=== PATIENT | female | born 1990 | race American Indian/Alaskan Native ===

== ENCOUNTER 2019-07-23 13:07 | Emergency (ER) | payer MEDICAID | END 2019-07-23 19:16 | disposition left against medical advice (07) | LOC: ED 13:07 | DX: R51 Headache (principal); Z53.21 Procedure and treatment not carried out due to patient leaving prior to being seen by health care provider ==

== ENCOUNTER 2019-11-29 15:33 | Outpatient (CLI) | payer OTHER, MEDICAID ==
[2019-11-29 19:35] VITALS: BP 105/55
== END 2019-11-29 19:54 | disposition home or self-care (01) ==
LOC: TRG 15:33 → LAB 15:33 → TRG 18:42
PROVIDERS: ATTEND Obstetrics & Gynecology
DX: O36.0930 Maternal care for other rhesus isoimmunization, third trimester, not applicable or unspecified (principal); Z3A.28 28 weeks gestation of pregnancy; Z67.91 Unspecified blood type, Rh negative
CPT/HCPCS: 86850; 86900; 86901

== ENCOUNTER 2019-12-12 13:19 | Outpatient (CLI) | payer OTHER, MEDICAID ==
[~2019-12-12 13:19] MED LIST: INSULIN REGULAR, HUMAN 100 UNITS/1 ML ONE
[2019-12-12 15:50] LABS: Hematocrit 32.5 % (30.3-42.9); Mean Corpuscular HGB Conc 34 % (30-34); Mean Corpuscular Volume 83 fl (79-97); Platelet Count 271 K/mm3 (140-440); Red Blood Count 3.94 M/mm3 (3.65-5.03); Red Cell Distribution Width 14.8 % (13.2-15.2)
[2019-12-12 15:58] LABS: Alanine Aminotransferase 14 units/L (7-56); BUN/Creatinine Ratio 12; Blood Urea Nitrogen 6 mg/dL (7-17); Calcium 8.3 mg/dL (8.4-10.2); Hemolysis Index 3
[2019-12-12] MEDS ORDERED: LACTATED RINGERS 1,000 ML IV SCH (16:00)
[2019-12-12] MEDS ORDERED: DOCUSATE SODIUM 100 MG CAP PO PRN (16:00)
[2019-12-12] MEDS ORDERED: ACETAMINOPHEN 325 MG TAB PO PRN (16:00)
[2019-12-12] MEDS ORDERED: INSULIN REGULAR, HUMAN 100 UNITS/1 ML SUB-Q SCH (16:30)
--- NOTE | 2019-12-12 17:04 | History and Physical Report ---
History of Present Illness Date of examination: 12/12/19 Date of admission: 12/12/2019 Chief complaint: 30 wks poorly controlled diabetes. History of present illness: Admitted through the offices of MFM at [facility] for control of diabetes. reported palpitations after drinking Pepsi. Past History - Obstetrical History Expected Date of Delivery: 02/16/20 Actual Gestation: 30 Week(s) 4 Day(s) : 3 Para: 1 Number of Living Children: 1 Medications and Allergies Allergies Allergy/AdvReac Type Severity Reaction Status Date / Time amoxicillin Allergy Severe Hives Verified 12/12/19 14:15 Active Meds: Active Medications Acetaminophen (Tylenol) 650 mg PO Q4H PRN PRN Reason: Pain MILD(1-3)/Fever >100.5/CH[place]RIA Docusate Sodium (Colace) 100 mg PO Q12H PRN PRN Reason: Constipation Lactated Ringer's (Lactated Ringers) 1,000 mls @ 75 mls/hr IV DIRECT [place]UL[place] Insulin Human Regular (Humulin R) 0 units SUB-Q ACHS [place]UL[place]; Protocol Multivitamins/Iron/Calcium ( Vitamin) 1 each PO QDAY [place] Review of Systems All systems: negative - Vital Signs Vital signs: Vital Signs Pulse BP Pulse Ox 105 H 104/51 98 12/12/19 14:14 12/12/19 14:14 12/12/19 14:14 Temp Pulse Resp BP Pulse Ox 98.6 F 99 H 20 104/51 100 12/12/19 14:17 12/12/19 16:54 12/12/19 14:17 12/12/19 14:17 12/12/19 16:54 - Physical Exam Lungs: Positive: Normal air movement Abdomen: Positive: normal appearance, soft, distention. Negative: tenderness, guarding Extremities: Positive: normal - Obstetrical FHR: auscultation normal Results Result Diagrams: 12/12/19 15:10 12/12/19 15:10 Abnormal lab results 12/12/19 12/12/19 Range/Units 15:10 15:10 Sodium 133 L (137-145) mmol/L Carbon Dioxide 17 L (22-30) mmol/L BUN 6 L (7-17) mg/dL Creatinine 0.5 L (0.7-1.2) mg/dL Glucose 217 H (65-100) mg/dL Hemoglobin A1c 11.7 H (4-6) % Calcium 8.3 L (8.4-10.2) mg/dL Albumin 3.0 L (3.9-5) g/dL All other labs normal. Assessment and Plan - Patient Problems (1) Diabetes mellitus Current Visit: Yes Status: Acute (2) with 30 completed weeks gestation Current Visit: Yes Status: Acute (3) Palpitations Current Visit: Yes Status: Acute Plan to address problem: A per MFM, 1. Admit 2. 24hr urinary protein, CBC, CMP, HbA1c, Fructosamine. 3. Accuchecks q4hrs. Regular insulin sliding scale coverage BS-100/30 =units of insul;in 4. 41 units of reg insulin and 84 units of NPHSQQAM, 31 units ofreg insulin and 31 unitsNPH insulin SQ QPM 5. I&O 6. 220 calorie ADA diet 7. Cardiology consult.
[2019-12-12] MEDS ORDERED: DEXTROSE 50% IN WATER (25GM) 50 ML SYRINGE IV PRN (17:21)
[2019-12-12 17:32] LABS: Basophils % (Auto) 0.3 % (0.0-1.8); Eosinophils # (Auto) 0.1 K/mm3 (0.0-0.4); Eosinophils % (Auto) 1.4 % (0.0-4.3); Hematocrit 34.5 % (30.3-42.9); Hemoglobin 11.2 gm/dl (10.1-14.3); Lymphocytes # (Auto) 1.6 K/mm3 (1.2-5.4); Lymphocytes % (Auto) 25.5 % (13.4-35.0); Mean Corpuscular HGB Conc 33 % (30-34); Mean Corpuscular Volume 83 fl (79-97); Monocytes # (Auto) 0.7 K/mm3 (0.0-0.8); Monocytes % (Auto) 11.8 % (0.0-7.3); Platelet Count 266 K/mm3 (140-440); Red Blood Count 4.18 M/mm3 (3.65-5.03); Red Cell Distribution Width 14.7 % (13.2-15.2)
[2019-12-12 18:01] LABS: Alanine Aminotransferase 14 units/L (7-56); Uric Acid 3.7 mg/dL (3.5-7.6)
[2019-12-12] MEDS: INSULIN REGULAR, HUMAN 100 UNITS/1 ML SUB-Q SCH ×2 (18:11→23:01)
[2019-12-12 18:57] LABS: Bilirubin,Urine NEG (Negative); Blood,Urine NEG (Negative); Color,Urine Yellow (Yellow); Mucus,Urine FEW /HPF; Protein,Urine <15 mg/dL mg/dL (Negative); Urobilinogen,Urine < 2.0 mg/dL (<2.0)
[2019-12-13] MEDS: INSULIN NPH, HUMAN 100 UNIT/1 ML SUB-Q SCH ×3 (08:57→17:45)
--- NOTE | 2019-12-13 09:43 | Consultation ---
<RICHELLE MERCHANT - Last Filed: 12/13/19 10:30> History of Present Illness Consult date: 12/13/19 Requesting physician: DELFINO SUAREZ Consult reason: other (palpitations) History of present illness: The pt is a 29 YO female who is 30 weeks () with a past medical history of uncontrolled DM. She is previously unknown to our practice. She presented from her OBGYN's office yesterday for management of uncontrolled diabetes. She states that she experienced palpitations 2 days ago and thus cardiology has been consulted. Pt reports that 2 days ago, she was experiencing heart burn so she drank Pepsi and then developed palpitations. She presented to [facility] for evaluation and reports that she had ECG and CT scan performed. She was told these tests were normal and was discharged home. Her palpitations only lasted for a couple of hours and have not returned. She denies any current chest pain, SOB, n/v, diaphoresis, dizziness or syncope. She denies any known prior cardiac issues or cardiac w/u. Past History Past Medical History: diabetes, other (30 weeks ) Medications and Allergies Allergies Allergy/AdvReac Type Severity Reaction Status Date / Time amoxicillin Allergy Severe Hives Verified 12/12/19 14:15 Home Medications Medication Instructions Recorded Confirmed Last Taken Type No Known Home Medications [No 12/12/19 12/12/19 Unknown History Reported Home Medications] Active Meds: Active Medications Acetaminophen (Tylenol) 650 mg PO Q4H PRN PRN Reason: Pain MILD(1-3)/Fever >100.5/[place] Dextrose (D50w (25gm) Syringe) 50 ml IV Q30MIN PRN; Protocol PRN Reason: Hypoglycemia Docusate Sodium (Colace) 100 mg PO Q12H PRN PRN Reason: Constipation Lactated Ringer's (Lactated Ringers) 1,000 mls @ 75 mls/hr IV DIRECT PAULINA Insulin Human NPH (Humulin N) 84 unit SUB-Q QAMDIAB [facility] Last Admin: 12/13/19 08:57 Dose: 84 unit Documented by: Insulin Human NPH (Humulin N) 31 unit SUB-Q QPMDIAB [facility] Last Admin: 12/13/19 09:00 Dose: 31 unit Documented by: Insulin Human Regular (Humulin R) 0 units SUB-Q Q4HR [facility]; Protocol Last Admin: 12/12/19 23:01 Dose: 4 units Documented by: Insulin Human Regular (Humulin R) 41 units SUB-Q QAMDIAB [facility] Insulin Human Regular (Humulin R) 31 units SUB-Q QPMDIAB [facility] Multivitamins/Iron/Calcium ( Vitamin) 1 each PO QDAY [facility] Review of Systems Constitutional: no weight loss, no fever, no chills, no sweats Ears, nose, mouth and throat: no ear pain, no nose pain, no sinus pressure, no sinus pain Cardiovascular: palpitations, no chest pain, no orthopnea, no rapid/irregular heart beat, no edema, no syncope, no lightheadedness, no shortness of breath, no dyspnea on exertion, no high blood pressure Respiratory: no cough, no shortness of breath, no dyspnea on exertion, no con gestion, no wheezing, no pain on inspiration Gastrointestinal: no abdominal pain, no nausea, no vomiting, no diarrhea, no constipation, no change in bowel habits Genitourinary Female: no pelvic pain, no flank pain Musculoskeletal: no neck stiffness, no neck pain, no shooting arm pain, no arm numbness/tingling, no low back pain, no shooting leg pain Integumentary: no rash, no pruritis, no redness, no sores, no wounds Neurological: no head injury, no paralysis, no weakness, no parathesias, no numbness, no tingling, no seizures, no syncope Psychiatric: no anxiety Endocrine: high blood sugars, no cold intolerance, no heat intolerance Hematologic/Lymphatic: no easy bruising Allergic/Immunologic: no urticaria Physical Examination Vital Signs Pulse BP Pulse Ox 105 H 104/51 98 12/12/19 14:14 12/12/19 14:14 12/12/19 14:14 General appearance: no acute distress HEENT: Positive: PERRL, Normocephaly, Mucus Membranes Moist Neck: Positive: neck supple, trachea midline Cardiac: Positive: Regular Rhythm, S1/S2 Lungs: Positive: Decreased Breath Sounds Neuro: Positive: Grossly Intact Abdomen: Positive: Other () Skin: Negative: Rash Musculoskeletal: No Pain Results 12/12/19 17:02 12/12/19 17:02 Cardiac Enzymes 12/12/19 12/12/19 Range/Units 15:10 17:02 AST 18 19 (5-40) units/L Lactate Dehydrogenase 146 (91-180) units/L CBC 12/12/19 12/12/19 Range/Units 15:10 17:02 WBC 6.2 6.2 (4.5-11.0) K/mm3 RBC 3.94 4.18 (3.65-5.03) M/mm3 Hgb 11.0 11.2 (10.1-14.3) gm/dl Hct 32.5 34.5 (30.3-42.9) % Plt Count 271 266 (140-440) K/mm3 Lymph # 1.6 (1.2-5.4) K/mm3 [place] # 0.7 (0.0-0.8) K/mm3 Eos # 0.1 (0.0-0.4) K/mm3 Baso # 0.0 (0.0-0.1) K/mm3 Comprehensive Metabolic Panel 12/12/19 12/12/19 Range/Units 15:10 17:02 Sodium 133 L (137-145) mmol/L Potassium 4.3 (3.6-5.0) mmol/L Chloride 98.9 (98-107) mmol/L Carbon Dioxide 17 L (22-30) mmol/L BUN 6 L (7-17) mg/dL Creatinine 0.5 L 0.4 L (0.7-1.2) mg/dL Glucose 217 H (65-100) mg/dL Calcium 8.3 L (8.4-10.2) mg/dL AST 18 19 (5-40) units/L ALT 14 14 (7-56) units/L Alkaline Phosphatase 44 (35-129) units/L Total Protein 6.6 (6.3-8.2) g/dL Albumin 3.0 L (3.9-5) g/dL - Imaging and Cardiology Echo: pending EKG: report reviewed, image reviewed EKG interpretations - EKG Sinus rhythms and dysrhythmias: sinus tachycardia Assessment and Plan ECG shows ST HR 101, no acute findings. Palpitations currently resolved - likely secondary to caffeine intake. Obtain echo and thyroid profile. Will follow. The patient has been seen in conjunction with Dr. Simon who agrees with the assessment and plan of care. - Patient Problems (1) Palpitations Current Visit: Yes Status: Acute (2) Sinus tachycardia Current Visit: Yes Status: Acute (3) Uncontrolled diabetes mellitus with hyperglycemia Current Visit: Yes Status: Acute (4) with 30 completed weeks gestation Current Visit: Yes Status: Acute <LILLIAN SIMON R - Last Filed: 12/13/19 12:32> Medications and Allergies Active Meds: Active Medications Acetaminophen (Tylenol) 650 mg PO Q4H PRN PRN Reason: Pain MILD(1-3)/Fever >100.5/[place] Dextrose (D50w (25gm) Syringe) 50 ml IV Q30MIN PRN; Protocol PRN Reason: Hypoglycemia Docusate Sodium (Colace) 100 mg PO Q12H PRN PRN Reason: Constipation Lactated Ringer's (Lactated Ringers) 1,000 mls @ 75 mls/hr IV DIRECT PAULINA Insulin Human NPH (Humulin N) 84 unit SUB-Q QAMDIAB [facility] Last Admin: 12/13/19 08:57 Dose: 84 unit Documented by: Insulin Human NPH (Humulin N) 31 unit SUB-Q QPMDIAB [facility] Last Admin: 12/13/19 09:00 Dose: 31 unit Documented by: Insulin Human Regular (Humulin R) 0 units SUB-Q Q4HR [facility]; Protocol Last Admin: 12/12/19 23:01 Dose: 4 units Documented by: Insulin Human Regular (Humulin R) 41 units SUB-Q QAMDIAB [facility] Insulin Human Regular (Humulin R) 31 units SUB-Q QPMDIAB [facility] Multivitamins/Iron/Calcium ( Vitamin) 1 each PO QDAY [facility] Physical Examination Vital Signs Pulse BP Pulse Ox 105 H 104/51 98 12/12/19 14:14 12/12/19 14:14 12/12/19 14:14 Results 12/12/19 17:02 12/12/19 17:02 Cardiac Enzymes 12/12/19 12/12/19 Range/Units 15:10 17:02 AST 18 19 (5-40) units/L Lactate Dehydrogenase 146 (91-180) units/L CBC 12/12/19 12/12/19 Range/Units 15:10 17:02 WBC 6.2 6.2 (4.5-11.0) K/mm3 RBC 3.94 4.18 (3.65-5.03) M/mm3 Hgb 11.0 11.2 (10.1-14.3) gm/dl Hct 32.5 34.5 (30.3-42.9) % Plt Count 271 266 (140-440) K/mm3 Lymph # 1.6 (1.2-5.4) K/mm3 [place] # 0.7 (0.0-0.8) K/mm3 Eos # 0.1 (0.0-0.4) K/mm3 Baso # 0.0 (0.0-0.1) K/mm3 Comprehensive Metabolic Panel 12/12/19 12/12/19 Range/Units 15:10 17:02 Sodium 133 L (137-145) mmol/L Potassium 4.3 (3.6-5.0) mmol/L Chloride 98.9 (98-107) mmol/L Carbon Dioxide 17 L (22-30) mmol/L BUN 6 L (7-17) mg/dL Creatinine 0.5 L 0.4 L (0.7-1.2) mg/dL Glucose 217 H (65-100) mg/dL Calcium 8.3 L (8.4-10.2) mg/dL AST 18 19 (5-40) units/L ALT 14 14 (7-56) units/L Alkaline Phosphatase 44 (35-129) units/L Total Protein 6.6 (6.3-8.2) g/dL Albumin 3.0 L (3.9-5) g/dL Assessment and Plan normal lv function, no signficant regurtiations, if thyroid panel is not hyperthyroidism, treat conservately, discuss with patient about caffeine stop and stres reduction. is stable from [facility] point of view and needs dm control and may discharge after sugar control
[2019-12-13] MEDS ORDERED: PRENATAL VIT27-FE FUMARATE-FOLIC ACID VIT TAB PO SCH (10:00)
[2019-12-13] MEDS ORDERED: INSULIN NPH, HUMAN 100 UNIT/1 ML SUB-Q ONE (10:00)
[2019-12-13] MEDS ORDERED: INSULIN REGULAR, HUMAN 100 UNITS/1 ML ONE (10:00)
--- NOTE | 2019-12-13 15:21 | Progress Note ---
Assessment and Plan - Patient Problems (1) Diabetes mellitus Current Visit: Yes Status: Acute (2) with 30 completed weeks gestation Current Visit: Yes Status: Acute (3) Palpitations Current Visit: Yes Status: Acute Plan to address problem: MIKE Masterson instructed to communicate blood sugars to MF. Subjective - Subjective Date of service: 12/13/19 Principal diagnosis: UNCONTROLLED DIABETES AT 30WKS GESTATION Interval history: Admitted through the offices of MF at [facility] for control of diabetes. reported palpitations after drinking Pepsi. Patient reports: new complaints, movement normal, no loss of fluid, no vaginal bleeding, no contractions Objective - Vital Signs Vital Signs: Vital Signs - 12hr 12/13/19 12/13/19 12/13/19 03:19 03:24 03:29 Temperature Pulse Rate 100 H 93 H 101 H Blood Pressure Blood Pressure [Right] O2 Sat by Pulse 98 98 97 Oximetry 12/13/19 12/13/19 12/13/19 03:34 03:39 03:44 Temperature Pulse Rate 96 H 102 H 98 H Blood Pressure Blood Pressure [Right] O2 Sat by Pulse 97 97 97 Oximetry 12/13/19 12/13/19 12/13/19 03:49 03:54 03:59 Temperature Pulse Rate 101 H 102 H 98 H Blood Pressure Blood Pressure [Right] O2 Sat by Pulse 97 98 97 Oximetry 12/13/19 12/13/19 12/13/19 04:04 04:09 04:14 Temperature Pulse Rate 101 H 107 H 96 H Blood Pressure Blood Pressure [Right] O2 Sat by Pulse 97 97 97 Oximetry 12/13/19 12/13/19 12/13/19 04:19 04:24 04:29 Temperature Pulse Rate 97 H 107 H 102 H Blood Pressure Blood Pressure [Right] O2 Sat by Pulse 98 96 97 Oximetry 12/13/19 12/13/19 12/13/19 04:34 04:37 04:39 Temperature Pulse Rate 105 H 100 H 104 H Blood Pressure Blood Pressure [Right] O2 Sat by Pulse 96 94 97 Oximetry 12/13/19 12/13/19 12/13/19 04:42 04:44 04:49 Temperature Pulse Rate 97 H 100 H 99 H Blood Pressure Blood Pressure [Right] O2 Sat by Pulse 94 96 96 Oximetry 12/13/19 12/13/19 12/13/19 04:54 04:55 04:59 Temperature Pulse Rate 98 H 95 H 98 H Blood Pressure Blood Pressure [Right] O2 Sat by Pulse 96 94 95 Oximetry 12/13/19 12/13/19 12/13/19 05:04 05:09 05:14 Temperature Pulse Rate 101 H 102 H 99 H Blood Pressure Blood Pressure [Right] O2 Sat by Pulse 96 96 96 Oximetry 12/13/19 12/13/19 12/13/19 05:19 05:24 05:29 Temperature Pulse Rate 98 H 101 H 98 H Blood Pressure Blood Pressure [Right] O2 Sat by Pulse 97 96 96 Oximetry 12/13/19 12/13/19 12/13/19 05:34 05:39 05:44 Temperature Pulse Rate 103 H 95 H 100 H Blood Pressure Blood Pressure [Right] O2 Sat by Pulse 96 97 96 Oximetry 12/13/19 12/13/19 12/13/19 05:49 05:54 05:59 Temperature Pulse Rate 99 H 99 H 97 H Blood Pressure Blood Pressure [Right] O2 Sat by Pulse 97 98 97 Oximetry 12/13/19 12/13/19 12/13/19 06:04 06:09 06:14 Temperature Pulse Rate 103 H 98 H 93 H Blood Pressure Blood Pressure [Right] O2 Sat by Pulse 99 98 99 Oximetry 12/13/19 12/13/19 12/13/19 06:19 06:24 06:29 Temperature Pulse Rate 104 H 104 H 103 H Blood Pressure Blood Pressure [Right] O2 Sat by Pulse 98 97 98 Oximetry 12/13/19 12/13/19 12/13/19 06:34 06:39 06:44 Temperature Pulse Rate 103 H 112 H 102 H Blood Pressure Blood Pressure [Right] O2 Sat by Pulse 98 98 98 Oximetry 12/13/19 12/13/19 12/13/19 06:49 06:54 06:59 Temperature Pulse Rate 95 H 102 H 96 H Blood Pressure Blood Pressure [Right] O2 Sat by Pulse 97 96 95 Oximetry 12/13/19 12/13/19 12/13/19 07:04 07:09 07:14 Temperature Pulse Rate 91 H 101 H 97 H Blood Pressure Blood Pressure [Right] O2 Sat by Pulse 96 96 95 Oximetry 12/13/19 12/13/19 12/13/19 07:19 07:24 07:29 Temperature Pulse Rate 99 H 107 H 102 H Blood Pressure Blood Pressure [Right] O2 Sat by Pulse 98 98 99 Oximetry 12/13/19 12/13/19 12/13/19 07:34 07:39 07:44 Temperature Pulse Rate 110 H 99 H 98 H Blood Pressure Blood Pressure [Right] O2 Sat by Pulse 99 98 99 Oximetry 12/13/19 12/13/19 12/13/19 07:49 07:54 07:59 Temperature Pulse Rate 96 H 95 H 97 H Blood Pressure Blood Pressure [Right] O2 Sat by Pulse 99 99 98 Oximetry 12/13/19 12/13/19 12/13/19 08:04 08:09 09:05 Temperature Pulse Rate 96 H 90 106 H Blood Pressure 127/68 Blood Pressure [Right] O2 Sat by Pulse 98 98 Oximetry 12/13/19 12/13/19 12/13/19 09:13 11:21 11:26 Temperature 99 F Pulse Rate 106 H 103 H 98 H Blood Pressure 129/66 Blood Pressure 127/68 [Right] O2 Sat by Pulse 95 97 Oximetry 12/13/19 12/13/19 12/13/19 11:31 13:37 13:41 Temperature 98.2 F 98.8 F Pulse Rate 98 H 103 H Blood Pressure 120/59 Blood Pressure 129/66 [Right] O2 Sat by Pulse Oximetry 12/13/19 12/13/19 12/13/19 13:42 13:47 13:52 Temperature Pulse Rate 105 H 108 H 102 H Blood Pressure Blood Pressure [Right] O2 Sat by Pulse 99 99 99 Oximetry 12/13/19 12/13/19 12/13/19 13:57 14:02 14:07 Temperature Pulse Rate 97 H 104 H 105 H Blood Pressure Blood Pressure [Right] O2 Sat by Pulse 98 99 99 Oximetry 12/13/19 12/13/19 12/13/19 14:12 14:17 14:22 Temperature Pulse Rate 104 H 102 H 109 H Blood Pressure Blood Pressure [Right] O2 Sat by Pulse 98 99 99 Oximetry 12/13/19 14:27 Temperature Pulse Rate 103 H Blood Pressure Blood Pressure [Right] O2 Sat by Pulse 99 Oximetry - Exam Lungs: Normal air movement FHR: auscultation normal - Labs Labs: Abnormal Labs 12/12/19 12/12/19 12/12/19 15:10 15:10 17:02 MCH 27 L [place] % (Auto) 11.8 H Sodium 133 L Carbon Dioxide 17 L BUN 6 L Creatinine 0.5 L Glucose 217 H POC Glucose Hemoglobin A1c 11.7 H Calcium 8.3 L Albumin 3.0 L 12/12/19 12/12/19 12/12/19 17:02 17:35 22:43 MCH [place] % (Auto) Sodium Carbon Dioxide BUN Creatinine 0.4 L Glucose POC Glucose 190 H 223 H Hemoglobin A1c Calcium Albumin 12/13/19 08:41 MCH [place] % (Auto) Sodium Carbon Dioxide BUN Creatinine Glucose POC Glucose 213 H Hemoglobin A1c Calcium Albumin Laboratory Results - last 24 hr 12/12/19 12/12/19 12/12/19 15:10 15:10 15:10 WBC 6.2 RBC 3.94 Hgb 11.0 Hct 32.5 MCV 83 MCH 28 MCHC 34 RDW 14.8 Plt Count 271 Lymph % (Auto) [place] % (Auto) Eos % (Auto) Baso % (Auto) Lymph # [place] # Eos # Baso # Seg Neutrophils % Seg Neutrophils # Sodium 133 L Potassium 4.3 Chloride 98.9 Carbon Dioxide 17 L Anion Gap 21 BUN 6 L Creatinine 0.5 L Estimated GFR > 60 BUN/Creatinine Ratio 12 Glucose 217 H POC Glucose Hemoglobin A1c 11.7 H Uric Acid Calcium 8.3 L Total Bilirubin 0.20 AST 18 ALT 14 Alkaline Phosphatase 44 Lactate Dehydrogenase Total Protein 6.6 Albumin 3.0 L Albumin/Globulin Ratio 0.8 TSH Free T4 Urine Color Urine Turbidity Urine pH Ur Specific [place] Urine Protein Urine Glucose (UA) Urine Ketones Urine Blood Urine Nitrite Urine Bilirubin Urine Urobilinogen Ur Leukocyte Esterase Urine WBC (Auto) Urine RBC (Auto) U Epithel Cells (Auto) Urine Mucus Urine Yeast (Budding) 12/12/19 12/12/19 12/12/19 17:02 17:02 17:35 WBC 6.2 RBC 4.18 Hgb 11.2 Hct 34.5 MCV 83 MCH 27 L MCHC 33 RDW 14.7 Plt Count 266 Lymph % (Auto) 25.5 [place] % (Auto) 11.8 H Eos % (Auto) 1.4 Baso % (Auto) 0.3 Lymph # 1.6 [place] # 0.7 Eos # 0.1 Baso # 0.0 Seg Neutrophils % 61.0 Seg Neutrophils # 3.8 Sodium Potassium Chloride Carbon Dioxide Anion Gap BUN Creatinine 0.4 L Estimated GFR > 60 BUN/Creatinine Ratio Glucose POC Glucose 190 H Hemoglobin A1c Uric Acid 3.7 Calcium Total Bilirubin AST 19 ALT 14 Alkaline Phosphatase Lactate Dehydrogenase 146 Total Protein Albumin Albumin/Globulin Ratio TSH Free T4 Urine Color Urine Turbidity Urine pH Ur Specific [place] Urine Protein Urine Glucose (UA) Urine Ketones Urine Blood Urine Nitrite Urine Bilirubin Urine Urobilinogen Ur Leukocyte Esterase Urine WBC (Auto) Urine RBC (Auto) U Epithel Cells (Auto) Urine Mucus Urine Yeast (Budding) 12/12/19 12/12/19 12/13/19 22:43 Unknown 08:41 WBC RBC Hgb Hct MCV MCH MCHC RDW Plt Count Lymph % (Auto) [place] % (Auto) Eos % (Auto) Baso % (Auto) Lymph # [place] # Eos # Baso # Seg Neutrophils % Seg Neutrophils # Sodium Potassium Chloride Carbon Dioxide Anion Gap BUN Creatinine Estimated GFR BUN/Creatinine Ratio Glucose POC Glucose 223 H 213 H Hemoglobin A1c Uric Acid Calcium Total Bilirubin AST ALT Alkaline Phosphatase Lactate Dehydrogenase Total Protein Albumin Albumin/Globulin Ratio TSH Free T4 Urine Color Yellow Urine Turbidity Clear Urine pH 5.0 Ur Specific [place] 1.028 Urine Protein <15 mg/dl Urine Glucose (UA) >=500 Urine Ketones 80 Urine Blood Neg Urine Nitrite Neg Urine Bilirubin Neg Urine Urobilinogen < 2.0 Ur Leukocyte Esterase Neg Urine WBC (Auto) 1.0 Urine RBC (Auto) 12.0 U Epithel Cells (Auto) 1.0 Urine Mucus Few Urine Yeast (Budding) 1+ 12/13/19 12/13/19 11:07 11:07 WBC RBC Hgb Hct MCV MCH MCHC RDW Plt Count Lymph % (Auto) [place] % (Auto) Eos % (Auto) Baso % (Auto) Lymph # [place] # Eos # Baso # Seg Neutrophils % Seg Neutrophils # Sodium Potassium Chloride Carbon Dioxide Anion Gap BUN Creatinine Estimated GFR BUN/Creatinine Ratio Glucose POC Glucose Hemoglobin A1c Uric Acid Calcium Total Bilirubin AST ALT Alkaline Phosphatase Lactate Dehydrogenase Total Protein Albumin Albumin/Globulin Ratio TSH 1.080 Free T4 1.18 Urine Color Urine Turbidity Urine pH Ur Specific [place] Urine Protein Urine Glucose (UA) Urine Ketones Urine Blood Urine Nitrite Urine Bilirubin Urine Urobilinogen Ur Leukocyte Esterase Urine WBC (Auto) Urine RBC (Auto) U Epithel Cells (Auto) Urine Mucus Urine Yeast (Budding)
--- NOTE | 2019-12-13 16:54 | Consultation ---
History of Present Illness Consult date: 12/13/19 Reason for consult: other (Poorly controlled likely T2DM diabetes in ) History of present illness: FOLLOW UP MFM CONSULTATION Ms. Das is a 29y/o currently at 30+5wks GA who was admitted by her primary OBGYN upon M recommendation for inpatient management of diabetes in the setting of outpatient poorly controlled blood sugars. Interval events: In speaking with the patient today, the patient states that she was having major issues in obtaining supplies for her insulin as well as glucometer from her [facility] pharmacy and that was why she was unable to take her insulin as previously instructed. On review of the chart and in speaking with the patient's RN, there have been issues with the glucometer used today. The patient reports that she received her insulin as scheduled in the AM. Fasting blood sugar was 213. She received appropriate coverage for this. The patient did not have a blood sugar taken for lunch. The next fingerstick recorded was 246, for which she did not receive sliding scale coverage. Currently, the patient is undergoing a 24hr urine collction. She denies CTX/VB/LOF. +FM. Past History - Obstetrical History : 3 Medications and Allergies Allergies Allergy/AdvReac Type Severity Reaction Status Date / Time amoxicillin Allergy Severe Hives Verified 12/12/19 14:15 Home Medications Medication Instructions Recorded Confirmed Last Taken Type No Known Home Medications [No 12/12/19 12/12/19 Unknown History Reported Home Medications] Active Meds: Active Medications Acetaminophen (Tylenol) 650 mg PO Q4H PRN PRN Reason: Pain MILD(1-3)/Fever >100.5/CHAVARRIA Dextrose (D50w (25gm) Syringe) 50 ml IV Q30MIN PRN; Protocol PRN Reason: Hypoglycemia Docusate Sodium (Colace) 100 mg PO Q12H PRN PRN Reason: Constipation Lactated Ringer's (Lactated Ringers) 1,000 mls @ 75 mls/hr IV DIRECT [facility] Sodium Chloride (Nacl 0.9% 1000 Ml) 1,000 mls @ 125 mls/hr IV DIRECT [facility] Insulin Human NPH (Humulin N) 84 unit SUB-Q QAMDIAB [facility] Last Admin: 12/13/19 08:57 Dose: 84 unit Documented by: Insulin Human NPH (Humulin N) 31 unit SUB-Q QPMDIAB [facility] Last Admin: 12/13/19 09:00 Dose: 31 unit Documented by: Insulin Human Regular (Humulin R) 0 units SUB-Q Q4HR [place]; Protocol Last Admin: 12/12/19 23:01 Dose: 4 units Documented by: Insulin Human Regular (Humulin R) 41 units SUB-Q QAMDIAB [place] Insulin Human Regular (Humulin R) 31 units SUB-Q QPMDIAB [facility] Multivitamins/Iron/Calcium ( Vitamin) 1 each PO QDAY [facility] Review of Systems All systems: negative (Denies) - Vital Signs Vital signs: Vital Signs Pulse BP Pulse Ox 105 H 104/51 98 12/12/19 14:14 12/12/19 14:14 12/12/19 14:14 Temp Pulse Resp BP Pulse Ox 98.8 F 109 H 20 120/59 0 L 12/13/19 13:37 12/13/19 15:22 12/12/19 14:17 12/13/19 13:41 12/13/19 15:22 - Physical Exam Abdomen: Positive: normal appearance, soft, other (Obese, gravid. No ruq/epigastric tenderness. No fundal tenderness.) Results Result Diagrams: 12/12/19 17:02 12/12/19 17:02 Abnormal lab results 12/12/19 12/12/19 12/12/19 Range/Units 17:02 17:02 17:35 MCH 27 L (28-32) pg [place] % (Auto) 11.8 H (0.0-7.3) % Creatinine 0.4 L (0.7-1.2) mg/dL POC Glucose 190 H (70-105) 12/12/19 12/13/19 Range/Units 22:43 08:41 MCH (28-32) pg [place] % (Auto) (0.0-7.3) % Creatinine (0.7-1.2) mg/dL POC Glucose 223 H 213 H (70-105) All other labs normal. Assessment and Plan IMPRESSIONS: IUP at 30+5wks gestation Poorly controlled type 2 diabetes mellitus in Rh negative, s/p RHD immune globulin Mild polyhydramnios as noted on M ultrasound yesterday Morbid obesity s/p cardiology consult for palpitations RECOMMENDATIONS: The significance and management of pregestational diabetes in were reviewed. We discussed maternal risks including including preeclampsia, delivery, diabetic ketoacidosis, and progression of nephropathy or retinopathy. We also reviewed risks, including abnormalities of growth (intrauterine growth restriction or macrosomia), defects, hypoglycemia and hyperbilirubinemia, as well as the risk for stillbirth with suboptimal control. In addition, children of women with pregestational diabetes may have higher risks for diabetes and obesity later in life. Going forward, I do recommend the followin. Please increase the patient's current regimen to the following: NPH 88 units in the AM, 38 units in the PM Regular insulin 50 units with breakfast, 38 units with dinner --> Ensure that the insulin is administered at the appropriate times. Regular insulin should be provided 30min to 1 hour prior to the meal given the pharmacokineteics of the drug 2. Please use the following regular insulin sliding scale to cover the patient, if neede, for blood sugars over 140mg/dL: 2 units: 140-160mg/dL 4 units: 160-180mg/dL 6 units: 180-200mg/dL 8 units: 200-220mg/dL 10 units: > 220mg/dL 3. Please obtain a nutritional consultation, if possible, as an inpatient. The patient desires to speak with nutrition. 4. The patient has not had monitoring today. Please obtain an NST or BPP. 5. If the patient's blood sugars are generally less than 200mg/dL and there is no concern for ketosis, the patient may then be considered for discharge home by her primary OBGYN with follow up with Maternal- Medicine as an outpatient. Outpatient monitoring would include weekly visits with M for blood sugar review as well as testing. 6. Please complete the 24hr urine collection 7. I discussed with the patient today that if diabetes is not well controlled by 37 weeks, delivery at 37 weeks is recommended. delivery should be reserved for the routine obstetrical indications.
[2019-12-13 17:13] LABS: Creatinine 24 Hour,Urine 1.6 (0.8-2.8); Creatinine,Urine 111.1 mg/dL (0.1-20.0)
[2019-12-13] MEDS: INSULIN REGULAR, HUMAN 100 UNITS/1 ML SUB-Q SCH ×2 (18:26→21:38)
--- NOTE | 2019-12-13 18:36 | Ultrasound Report ---
ULTRASOUND BIOPHYSICAL PROFILE INDICATION / CLINICAL INFORMATION: IDM. COMPARISON: None available. FINDINGS: BREATHING MOVEMENT = 2 GROSS BODY MOVEMENT = 2 TONE = 2 QUALITATIVE AMNIOTIC FLUID VOLUME = 2 TOTAL BIOPHYSICAL SCORE = 04/25 AMNIOTIC FLUID INDEX (cm) = 21.3 PRESENTATION: Transverse. HEART RATE (beats per minute): 129 IMPRESSION: 1. biophysical profile = 04/25 Signer Name: Thor Vasquez MD Signed: 12/13/2019 6:32 PM Workstation Name: [id number]
--- NOTE | 2019-12-13 18:39 | Ultrasound Report ---
ULTRASOUND OBSTETRIC Indication: DIABETES UNCONTROLLED Findings: There is a single intrauterine . BPD = 8.0 cm = 32 weeks, 0 day(s). Head circumference = 30 cm = 33 weeks, 2 day(s). Abdominal circumference = 30.7 cm = 34 weeks, 5 day(s). Femur length = 6.4 cm = 32 weeks, 6 day(s). Overall estimated sonographic age = 33 weeks, 2 day(s). heart rate is 129 beats per minute. Estimated weight is 2268 grams position is transverse. Cervix appears closed. movement is present. Amniotic fluid volume appears normal. Maternal adnexa were not visualized. Impression: 1. Single living intrauterine with estimated sonographic age of 33 weeks, 2 day(s). 2. No sonographic abnormality identified. Signer Name: Thor Vasquez MD Signed: 12/13/2019 6:34 PM Workstation Name: [id number]
[2019-12-14] MEDS: INSULIN REGULAR, HUMAN 100 UNITS/1 ML SUB-Q SCH ×4 (00:30→19:11)
[2019-12-14] MEDS: SODIUM CHLORIDE 0.9% 1000 ML 1,000 ML IV SCH ×2 (04:34→19:47)
[2019-12-14] MEDS: INSULIN NPH, HUMAN 100 UNIT/1 ML SUB-Q SCH ×2 (08:21→17:34)
[2019-12-14] MEDS ORDERED: INSULIN REGULAR, HUMAN 100 UNITS/1 ML ONE ×2 (10:00→19:08)
--- NOTE | 2019-12-14 15:47 | Progress Note ---
Assessment and Plan - Patient Problems (1) Diabetes mellitus Current Visit: Yes Status: Acute (2) with 30 completed weeks gestation Current Visit: Yes Status: Acute (3) Palpitations Current Visit: Yes Status: Acute Plan to address problem: The following recommendations from [facility] dated 12/13/2019 were noted: Going forward, I do recommend the followin. Please increase the patient's current regimen to the following: NPH 88 units in the AM, 38 units in the PM Regular insulin 50 units with breakfast, 38 units with dinner --> Ensure that the insulin is administered at the appropriate times. Regular insulin should be provided 30min to 1 hour prior to the meal given the pharmacokineteics of the drug 2. Please use the following regular insulin sliding scale to cover the patient, if neede, for blood sugars over 140mg/dL: 2 units: 140-160mg/dL 4 units: 160-180mg/dL 6 units: 180-200mg/dL 8 units: 200-220mg/dL 10 units: > 220mg/dL 3. Please obtain a nutritional consultation, if possible, as an inpatient. The patient desires to speak with nutrition. 4. The patient has not had monitoring today. Please obtain an NST or BPP. 5. If the patient's blood sugars are generally less than 200mg/dL and there is no concern for ketosis, the patient may then be considered for discharge home by her primary OBGYN with follow up with Maternal- Medicine as an outpatient. Outpatient monitoring would include weekly visits with [facility] for blood sugar re view as well as testing. 6. Please complete the 24hr urine collection 7. I discussed with the patient today that if diabetes is not well controlled by 37 weeks, delivery at 37 weeks is recommended. delivery should be reserved for the routine obstetrical indications. In reviewing patients blood sugar profiles, current insulin levels are effective and may need adjustments downwards. New glucometer and supplied prescribed for patient against discharge from tomorrow. Subjective - Subjective Date of service: 12/14/19 Principal diagnosis: UNCONTROLLED DIABETES AT 30WKS GESTATION Interval history: Admitted through the offices of [facility] at [facility] for control of diabetes. reported palpitations after drinking Pepsi. Patient reports: new complaints, movement normal, no loss of fluid, no vaginal bleeding, no contractions Objective - Vital Signs Vital Signs: Vital Signs - 12hr 12/14/19 12/14/19 12/14/19 03:47 03:52 03:57 Temperature Pulse Rate 90 89 90 Respiratory Rate Blood Pressure O2 Sat by Pulse 98 98 98 Oximetry 12/14/19 12/14/19 12/14/19 04:02 04:07 04:12 Temperature Pulse Rate 91 H 86 87 Respiratory Rate Blood Pressure O2 Sat by Pulse 98 99 99 Oximetry 12/14/19 12/14/19 12/14/19 04:17 04:22 04:27 Temperature Pulse Rate 89 90 91 H Respiratory Rate Blood Pressure O2 Sat by Pulse 100 100 98 Oximetry 12/14/19 12/14/19 12/14/19 04:32 04:37 04:42 Temperature Pulse Rate 88 87 92 H Respiratory Rate Blood Pressure O2 Sat by Pulse 100 99 100 Oximetry 12/14/19 12/14/19 12/14/19 04:47 04:52 04:57 Temperature Pulse Rate 92 H 88 89 Respiratory Rate Blood Pressure O2 Sat by Pulse 100 100 100 Oximetry 12/14/19 12/14/19 12/14/19 05:02 05:07 05:12 Temperature Pulse Rate 87 86 87 Respiratory Rate Blood Pressure O2 Sat by Pulse 99 99 100 Oximetry 12/14/19 12/14/19 12/14/19 05:16 05:22 05:27 Temperature Pulse Rate 90 87 84 Respiratory Rate Blood Pressure O2 Sat by Pulse 99 98 98 Oximetry 12/14/19 12/14/19 12/14/19 05:32 05:37 05:42 Temperature Pulse Rate 90 89 87 Respiratory Rate Blood Pressure O2 Sat by Pulse 99 100 100 Oximetry 12/14/19 12/14/19 12/14/19 05:47 05:52 05:57 Temperature Pulse Rate 85 96 H 97 H Respiratory Rate Blood Pressure O2 Sat by Pulse 100 95 97 Oximetry 12/14/19 12/14/19 12/14/19 06:02 06:07 06:12 Temperature Pulse Rate 91 H 91 H 91 H Respiratory Rate Blood Pressure O2 Sat by Pulse 96 96 96 Oximetry 12/14/19 12/14/19 12/14/19 06:17 06:22 06:27 Temperature Pulse Rate 91 H 86 94 H Respiratory Rate Blood Pressure O2 Sat by Pulse 97 98 96 Oximetry 12/14/19 12/14/19 12/14/19 06:32 06:37 06:42 Temperature Pulse Rate 93 H 92 H 94 H Respiratory Rate Blood Pressure O2 Sat by Pulse 96 97 97 Oximetry 12/14/19 12/14/19 12/14/19 06:47 06:52 06:57 Temperature Pulse Rate 93 H 90 92 H Respiratory Rate Blood Pressure O2 Sat by Pulse 97 96 96 Oximetry 12/14/19 12/14/19 12/14/19 07:02 07:07 07:10 Temperature Pulse Rate 94 H 91 H 85 Respiratory Rate Blood Pressure O2 Sat by Pulse 94 96 93 Oximetry 12/14/19 12/14/19 12/14/19 07:12 07:17 07:22 Temperature Pulse Rate 109 H 95 H 89 Respiratory Rate Blood Pressure O2 Sat by Pulse 99 100 100 Oximetry 12/14/19 12/14/19 12/14/19 11:17 11:20 12:49 Temperature 98.8 F Pulse Rate 99 H Respiratory 18 Rate Blood Pressure 136/66 O2 Sat by Pulse Oximetry 12/14/19 12/14/19 12/14/19 12:53 12:58 13:03 Temperature Pulse Rate 98 H 103 H 99 H Respiratory Rate Blood Pressure O2 Sat by Pulse 100 99 100 Oximetry 12/14/19 12/14/19 12/14/19 13:08 13:13 13:18 Temperature Pulse Rate 97 H 95 H 100 H Respiratory Rate Blood Pressure O2 Sat by Pulse 99 99 99 Oximetry 12/14/19 12/14/19 12/14/19 13:23 13:28 13:33 Temperature Pulse Rate 101 H 107 H 98 H Respiratory Rate Blood Pressure O2 Sat by Pulse 100 99 98 Oximetry 12/14/19 12/14/19 12/14/19 13:36 13:38 13:43 Temperature Pulse Rate 113 H 101 H 98 H Respiratory Rate Blood Pressure O2 Sat by Pulse 73 L 99 97 Oximetry 12/14/19 12/14/19 12/14/19 13:48 13:53 13:58 Temperature Pulse Rate 109 H 94 H 93 H Respiratory Rate Blood Pressure O2 Sat by Pulse 99 99 98 Oximetry 12/14/19 12/14/19 12/14/19 14:03 14:08 14:13 Temperature Pulse Rate 97 H 88 91 H Respiratory Rate Blood Pressure O2 Sat by Pulse 100 99 100 Oximetry 12/14/19 12/14/19 12/14/19 14:18 14:23 14:28 Temperature Pulse Rate 102 H 91 H 94 H Respiratory Rate Blood Pressure O2 Sat by Pulse 99 99 99 Oximetry 12/14/19 12/14/19 14:33 14:38 Temperature Pulse Rate 100 H 98 H Respiratory Rate Blood Pressure O2 Sat by Pulse 99 100 Oximetry - Exam Lungs: Normal air movement Abdomen: Present: normal appearance, soft, distention. Absent: tenderness, guarding Uterus: Present: normal. Absent: tenderness FHR: auscultation normal, other (BPP 8/8 12/13/2019) Extremities: normal - Labs Labs: Abnormal Labs 12/12/19 12/12/19 12/12/19 15:10 15:10 17:02 MCH 27 L [place] % (Auto) 11.8 H Sodium 133 L Carbon Dioxide 17 L BUN 6 L Creatinine 0.5 L Glucose 217 H POC Glucose Hemoglobin A1c 11.7 H Calcium 8.3 L Albumin 3.0 L Urine Creatinine Ur Total Protein 24 Hr Urine Total Protein 12/12/19 12/12/19 12/12/19 17:02 17:35 22:43 MCH [place] % (Auto) Sodium Carbon Dioxide BUN Creatinine 0.4 L Glucose POC Glucose 190 H 223 H Hemoglobin A1c Calcium Albumin Urine Creatinine Ur Total Protein 24 Hr Urine Total Protein 12/13/19 12/13/19 12/13/19 08:41 17:09 21:28 MCH [place] % (Auto) Sodium Carbon Dioxide BUN Creatinine Glucose POC Glucose 213 H 183 H 157 H Hemoglobin A1c Calcium Albumin Urine Creatinine Ur Total Protein 24 Hr Urine Total Protein 12/13/19 12/14/19 12/14/19 Unknown 00:35 07:35 MCH [place] % (Auto) Sodium Carbon Dioxide BUN Creatinine Glucose POC Glucose 118 H 107 H Hemoglobin A1c Calcium Albumin Urine Creatinine 111.1 H Ur Total Protein 24 Hr 217.50 H Urine Total Protein 15 H Laboratory Results - last 24 hr 12/13/19 12/13/19 12/13/19 17:09 21:28 Unknown POC Glucose 183 H 157 H Urine Total Volume 1450 Urine Creatinine 111.1 H Ur Creatinine 24 Hour 1.6 Ur Total Protein 24 Hr 217.50 H Urine Total Protein 15 H 12/14/19 12/14/19 12/14/19 00:35 04:42 07:35 POC Glucose 118 H 80 107 H Urine Total Volume Urine Creatinine Ur Creatinine 24 Hour Ur Total Protein 24 Hr Urine Total Protein 12/14/19 12/14/19 11:24 15:17 POC Glucose 93 91 Urine Total Volume Urine Creatinine Ur Creatinine 24 Hour Ur Total Protein 24 Hr Urine Total Protein
[2019-12-14] MEDS ORDERED: SODIUM CHLORIDE P/F VIAL 10 ML 10 ML ONE (17:30)
[2019-12-15] MEDS: INSULIN REGULAR, HUMAN 100 UNITS/1 ML SUB-Q SCH ×6 (01:59→14:10)
[2019-12-15] MEDS: SODIUM CHLORIDE 0.9% 1000 ML 1,000 ML IV SCH (06:04)
[2019-12-15] MEDS: INSULIN NPH, HUMAN 100 UNIT/1 ML SUB-Q SCH (07:38)
[2019-12-15] MEDS ORDERED: INSULIN REGULAR, HUMAN 100 UNITS/1 ML ONE ×3 (08:21→10:00)
--- NOTE | 2019-12-15 08:45 | Progress Note ---
Subjective - Subjective Date of service: 12/15/19 Principal diagnosis: UNCONTROLLED DIABETES AT 30WKS GESTATION Interval history: no complaints BS stable<200 learning how to give herself insulin appreciate nutritional consult is unable to fet glucometer until tomorrow: will hold of on D/C until tomorrow no OB complaints FHT Category 1 and appropriate for gestational age not in labor continue current managment, plan for d/c home tomorrow maternal/ status reassuring at this time Jessi Ruiz MD Patient reports: new complaints, movement normal, no loss of fluid, no vaginal bleeding, no contractions Objective - Vital Signs Vital Signs: Vital Signs - 12hr 12/15/19 12/15/19 12/15/19 00:30 00:46 06:00 Temperature 97.5 F L 97.5 F L Pulse Rate 96 H Respiratory 16 Rate Blood Pressure 128/57 O2 Sat by Pulse Oximetry 12/15/19 12/15/19 12/15/19 06:03 07:46 07:47 Temperature Pulse Rate 94 H 90 94 H Respiratory Rate Blood Pressure 129/60 127/60 O2 Sat by Pulse 100 Oximetry 12/15/19 12/15/19 12/15/19 07:52 07:57 08:02 Temperature Pulse Rate 88 89 92 H Respiratory Rate Blood Pressure O2 Sat by Pulse 99 99 99 Oximetry 12/15/19 12/15/19 08:07 08:12 Temperature Pulse Rate 92 H 98 H Respiratory Rate Blood Pressure O2 Sat by Pulse 99 99 Oximetry - Labs Labs: Abnormal Labs 12/12/19 12/12/19 12/12/19 15:10 15:10 17:02 MCH 27 L [place] % (Auto) 11.8 H Sodium 133 L Carbon Dioxide 17 L BUN 6 L Creatinine 0.5 L Glucose 217 H POC Glucose Hemoglobin A1c 11.7 H Calcium 8.3 L Albumin 3.0 L Urine Creatinine Ur Total Protein 24 Hr Urine Total Protein 12/12/19 12/12/19 12/12/19 17:02 17:35 22:43 MCH [place] % (Auto) Sodium Carbon Dioxide BUN Creatinine 0.4 L Glucose POC Glucose 190 H 223 H Hemoglobin A1c Calcium Albumin Urine Creatinine Ur Total Protein 24 Hr Urine Total Protein 12/13/19 12/13/19 12/13/19 08:41 17:09 21:28 MCH [place] % (Auto) Sodium Carbon Dioxide BUN Creatinine Glucose POC Glucose 213 H 183 H 157 H Hemoglobin A1c Calcium Albumin Urine Creatinine Ur Total Protein 24 Hr Urine Total Protein 12/13/19 12/14/19 12/14/19 Unknown 00:35 07:35 MCH [place] % (Auto) Sodium Carbon Dioxide BUN Creatinine Glucose POC Glucose 118 H 107 H Hemoglobin A1c Calcium Albumin Urine Creatinine 111.1 H Ur Total Protein 24 Hr 217.50 H Urine Total Protein 15 H 12/14/19 12/14/19 19:58 22:48 MCH [place] % (Auto) Sodium Carbon Dioxide BUN Creatinine Glucose POC Glucose 134 H 114 H Hemoglobin A1c Calcium Albumin Urine Creatinine Ur Total Protein 24 Hr Urine Total Protein Laboratory Results - last 24 hr 12/14/19 12/14/19 12/14/19 11:24 15:17 19:58 POC Glucose 93 91 134 H 12/14/19 12/15/19 12/15/19 22:48 02:32 06:14 POC Glucose 114 H 93 80
[2019-12-15 15:44] VITALS: BP 136/76
== END 2019-12-15 16:10 | disposition home or self-care (01) ==
LOC: TRG 13:19 → LD 13:20 → TRG 12-15 16:10
PROVIDERS: ATTEND Obstetrics & Gynecology
DX: O24.419 Gestational diabetes mellitus in pregnancy, unspecified control (principal); O26.893 Other specified pregnancy related conditions, third trimester; R00.2 Palpitations; O47.03 False labor before 37 completed weeks of gestation, third trimester; O36.63X0 Maternal care for excessive fetal growth, third trimester, not applicable or unspecified; O40.3XX0 Polyhydramnios, third trimester, not applicable or unspecified; Z3A.30 30 weeks gestation of pregnancy
CPT/HCPCS: 36415; 76816; 76819; 80053; 81001; 82565; 82570; 82962; 83036; 83615; 84156; 84439; 84443; 84450; 84460; 84550; 85025; 85027; 93005; 96360; 96361; 96372; J7030; J1815; J7120

== ENCOUNTER 2019-12-18 16:02 | Outpatient (CLI) | payer OTHER, MEDICAID ==
[2019-12-18] MEDS ORDERED: LACTATED RINGERS 1,000 ML IV ONE (17:45)
== END 2019-12-18 20:10 | disposition home or self-care (01) ==
LOC: TRG 16:02
PROVIDERS: ATTEND Obstetrics & Gynecology
DX: O60.03 Preterm labor without delivery, third trimester (principal); Z3A.31 31 weeks gestation of pregnancy
CPT/HCPCS: 59025; 96360; J7120

== ENCOUNTER 2020-01-21 20:48 | Inpatient (IN) | payer OTHER, MEDICAID ==
[2020-01-21] MEDS ORDERED: fentaNYL 100 MCG/2 ML INJ IV PRN (21:06)
[2020-01-21] MEDS ORDERED: TERBUTALINE 1 MG/1 ML INJ IVP PRN (21:06)
[2020-01-21] MEDS ORDERED: TERBUTALINE 1 MG/1 ML INJ SUB-Q PRN (21:06)
[2020-01-21] MEDS ORDERED: BUTORPHANOL 2 MG/1 ML INJ IV PRN (21:06)
[2020-01-21] MEDS ORDERED: ePHEDrine SULFATE 50 MG/1 ML INJ IV PRN (21:06)
[2020-01-21] MEDS ORDERED: ONDANSETRON 4 MG/2 ML INJ IV PRN (21:06)
[2020-01-21] MEDS ORDERED: MINERAL OIL 30 ML ORAL LIQD PO PRN (21:06)
[2020-01-21] MEDS ORDERED: DINOPROSTONE 10 MG VAG SUPP VG ONE (22:00)
[2020-01-21] MEDS ORDERED: OXYTOCIN 20 UNIT/1000ML DRIP 20 UNITS/1,000 ML BAG IV SCH (22:00)
[2020-01-21] MEDS ORDERED: OXYTOCIN DRIP 30 UNITS/500 ML BAG IV SCH ×2 (22:00)
[2020-01-21] MEDS ORDERED: LIDOCAINE (2%) 20 MG/1 ML VIAL 20 ML MDV INFILTRATI ONE (22:00)
[2020-01-22 00:05] LABS: Hematocrit 35.6 % (30.3-42.9); Hemoglobin 11.3 gm/dl (10.1-14.3); Mean Corpuscular HGB Conc 32 % (30-34); Mean Corpuscular Volume 81 fl (79-97); Platelet Count 353 K/mm3 (140-440); Red Blood Count 4.38 M/mm3 (3.65-5.03); Red Cell Distribution Width 16.1 % (13.2-15.2)
[2020-01-22] MEDS: INSULIN REGULAR, HUMAN 100 UNITS/1 ML SUB-Q SCH ×3 (00:10→13:24)
--- NOTE | 2020-01-22 03:46 | History and Physical Report ---
History of Present Illness Date of examination: 01/22/20 Date of admission: 01/21/20 20:48 Chief complaint: IOL secondary to IDDM; Morbid obesity History of present illness: 29 yo, @ 36.3 wks, initiated care with [facility] [employer] [facility] [employer] at 7.3 wks gestation. Her has been complicated by IDDM (uncontrolled - Hgb A1c 10%), morbid obesity, HTN, antibody screen + Anti D, Rh negative status, polyhydramnios @ 24 wks and Trichomoniasis (DELTA negative). Her care has been co-managed by [facility] specialist. She presents to [facility] for IOL per [facility]. She reports + FM. Denies any VB or LOF. Labs: O negative, antibody positive; PAP smear normal; rubella immune; VDRL negative; HBsAg negative; platelets 400k; GC/Chlamydia negative; MSAFP/Multiple markers: +DS, cell free DNA negative; Vit D 9.4; HIV negative; 24 hr urine- 218mg; GBS negative. Past History Past Medical History: diabetes, other (Morbid obesity; Vit D deficiency) Past Surgical History: no surgical history [employer] History: trichomonas Family/Genetic History: none Social history: single, lives with family, full code. denies: smoking, alcohol abuse, prescription drug abuse, IV drug use - Obstetrical History Expected Date of Delivery: 02/16/20 Actual Gestation: 36 Week(s) 3 Day(s) : 3 Para: 1 Hx # Term Pregnancies: 1 Number of Pregnancies: 0 Spontaneous Abortions: 1 Induced : 0 Number of Living Children: 1 #1 Infant Gender: Male year: 2,010 Birthweight: 3.856 kg Method of Delivery: Vaginal Gestational age at delivery: 39 Complications: none #2 year: 2,018 (SAB) Gestational age at delivery: 9 Complications: none Medications and Allergies Allergies Allergy/AdvReac Type Severity Reaction Status Date / Time amoxicillin Allergy Severe Hives Verified 12/18/19 16:50 Home Medications Medication Instructions Recorded Confirmed Last Taken Type Insulin Regular, Human [HumuLIN R] 41 units SUB-Q QAMDIAB #1 vial 12/15/19 12/18/19 12/18/19 06:00 Rx Insulin NPH, Human [NovoLIN N] 41 unit SUB-Q QPMDIAB 12/18/19 12/17/19 18:00 History Insulin NPH, Human [NovoLIN N] 81 unit SUB-Q QAMDIAB 12/18/19 12/18/19 12/18/19 06:00 History Insulin Regular, Human [HumuLIN R] 41 units SUB-Q QPMDIAB 12/18/19 12/18/19 12/17/19 18:00 History Active Meds: Active Medications Butorphanol Tartrate (Stadol) 1 mg IV Q2H PRN PRN Reason: Pain, Moderate(4-6) LABOR PAIN Ephedrine Sulfate (Ephedrine Sulfate) 10 mg IV Q2M PRN PRN Reason: Hypotension Fentanyl (Sublimaze) 100 mcg IV Q2H PRN PRN Reason: Pain,Severe (7-10) LABOR PAIN Oxytocin/Sodium Chloride (Pitocin/Ns 20 Unit/1000ml Drip) 20 units in 1,000 mls @ 125 mls/hr IV DIRECT [place] Oxytocin/Sodium Chloride (Pitocin/Ns 30 Unit/500ml) 30 units in 500 mls @ 1 mls/hr IV TITR [place]; Protocol Oxytocin/Sodium Chloride (Pitocin/Ns 30 Unit/500ml) 30 units in 500 mls @ 0 mls/hr IV TITR [place]; Protocol Lactated Ringer's (Lactated Ringers) 1,000 mls @ 125 mls/hr IV DIRECT [place] Insulin Human Regular (Humulin R) 0 units SUB-Q ACHS PAUL[place]; Protocol Last Admin: 01/22/20 00:10 Dose: Not Given Documented by: Mineral Oil (Mineral Oil) 30 ml PO QHS PRN PRN Reason: Constipation Ondansetron HCl (Zofran) 4 mg IV Q8H PRN PRN Reason: Nausea And Vomiting Terbutaline Sulfate (Brethine) 0.25 mg SUB-Q ONCE PRN PRN Reason: Hyperstimulation/Hypertonicity Terbutaline Sulfate (Brethine) 0.25 mg IVP ONCE PRN PRN Reason: Hyperstimulation/Hypertonicity Review of Systems All systems: negative - Vital Signs Vital signs: Vital Signs Pulse BP 112 H 128/83 01/21/20 22:25 01/21/20 22:25 Temp Pulse Resp BP Pulse Ox 98.7 F 94 H 18 107/55 01/21/20 22:31 01/22/20 02:05 01/21/20 22:31 01/22/20 02:05 - Physical Exam Breasts: Positive: normal Cardiovascular: Regular rate Lungs: Positive: Normal air movement Abdomen: Positive: other (gravid; obese) Genitourinary (Female): Positive: normal external genitalia, normal perenium Vagina: Positive: normal moisture Uterus: Positive: enlarged (S=D) Extremities: Positive: normal Deep Tendon Reflex Grade: Normal +2 - Obstetrical FHR: category 1 Uterine Contraction Monitor Mode: External Cervical Dilatation: 0 (per RN) Cervical Effacement Percentage: 50 station: -3 Uterine Contraction Pattern: Absent Uterine Tone Measurement Phase: Resting Results Result Diagrams: 01/21/20 22:42 Abnormal lab results 01/21/20 01/22/20 Range/Units 22:42 00:59 MCH 26 L (28-32) pg RDW 16.1 H (13.2-15.2) % POC Glucose 67 L (70-105) All other labs normal. Assessment and Plan - Patient Problems (1) Encounter for induction of labor Current Visit: Yes Status: Acute Plan to address problem: Admit to L & D Cervidil x 12 hr as tolerated Pain meds as desired Anticipate (2) Diabetes mellitus Current Visit: No Status: Acute Qualifiers: Diabetes mellitus type: type 1 Diabetes mellitus complication status: with hyperglycemia Qualified Code(s): E10.65 - Type 1 diabetes mellitus with hyperglycemia Plan to address problem: High dose SSI acHS until in active labor, then Q hr Insulin management by physician (3) Morbid obesity with BMI of 50.0-59.9, adult Current Visit: Yes Status: Acute (4) Polyhydramnios affecting Current Visit: Yes Status: Acute (5) Rh negative state in antepartum period Current Visit: Yes Status: Acute Plan to address problem: Rhogam workup PP
--- NOTE | 2020-01-22 04:03 | Event Note ---
Date: 01/22/20 (314) Pt ambulated to restroom and reported that "cervidil came out". Cervical exam:/3. Initiate low-dose Pitocin @ 1mu/min with max of 4mu/min overnight, until 0900, then re-asses.
[2020-01-22] MEDS: LACTATED RINGERS 1,000 ML IV SCH ×2 (04:16→12:00)
--- NOTE | 2020-01-22 11:05 | Progress Note ---
Assessment and Plan A: IUP @ 36 3/7 Weeks IDDM Maternal Obesity HTN GBS Negative P: Continue Pitocin Induction IUPC Placed Insulin Sliding Scale Continue MD Management of IDDM IV Pain Control Prepare for Epidural Anesthesia Subjective - Subjective Date of service: 01/22/20 Patient reports: movement normal, contractions (Requesting IV Pain Medication) Objective - Vital Signs Vital Signs: Vital Signs - 12hr 01/22/20 01/22/20 01/22/20 01:22 02:05 03:39 Temperature Pulse Rate 97 H 94 H 103 H Blood Pressure 100/52 107/55 O2 Sat by Pulse 100 Oximetry 01/22/20 01/22/20 01/22/20 03:44 03:49 03:54 Temperature Pulse Rate 107 H 96 H 92 H Blood Pressure O2 Sat by Pulse 100 99 100 Oximetry 01/22/20 01/22/20 01/22/20 03:59 04:04 04:09 Temperature Pulse Rate 98 H 106 H 100 H Blood Pressure O2 Sat by Pulse 99 98 98 Oximetry 01/22/20 01/22/20 01/22/20 04:14 04:19 04:24 Temperature Pulse Rate 113 H 103 H 103 H Blood Pressure O2 Sat by Pulse 99 100 99 Oximetry 01/22/20 01/22/20 01/22/20 04:29 04:34 04:39 Temperature Pulse Rate 104 H 103 H 99 H Blood Pressure O2 Sat by Pulse 100 99 99 Oximetry 01/22/20 01/22/20 01/22/20 04:44 04:49 04:54 Temperature Pulse Rate 97 H 110 H 116 H Blood Pressure O2 Sat by Pulse 99 100 98 Oximetry 01/22/20 01/22/20 01/22/20 04:59 05:04 05:05 Temperature Pulse Rate 106 H 88 104 H Blood Pressure 113/53 O2 Sat by Pulse 98 97 Oximetry 01/22/20 01/22/20 01/22/20 05:09 05:14 05:19 Temperature Pulse Rate 90 100 H 98 H Blood Pressure O2 Sat by Pulse 99 99 99 Oximetry 01/22/20 01/22/20 01/22/20 05:24 05:29 05:34 Temperature Pulse Rate 95 H 101 H 101 H Blood Pressure O2 Sat by Pulse 98 97 96 Oximetry 01/22/20 01/22/20 01/22/20 05:39 05:44 05:49 Temperature Pulse Rate 98 H 105 H 104 H Blood Pressure O2 Sat by Pulse 100 100 99 Oximetry 01/22/20 01/22/20 05 05:54 05:59 06:04 Temperature Pulse Rate 100 H 92 H 99 H Blood Pressure O2 Sat by Pulse 99 99 96 Oximetry 01/22/20 01/22/20 05 06:05 06:09 06:14 Temperature Pulse Rate 98 H 99 H 111 H Blood Pressure 124/56 O2 Sat by Pulse 97 97 Oximetry 01/22/20 01/22/20 01/22/20 06:19 06:24 06:29 Temperature Pulse Rate 107 H 102 H 94 H Blood Pressure O2 Sat by Pulse 98 97 98 Oximetry 01/22/20 01/22/20 05 06:34 06:39 06:44 Temperature Pulse Rate 98 H 99 H 94 H Blood Pressure O2 Sat by Pulse 97 98 99 Oximetry 01/22/20 01/22/20 05 06:49 06:54 06:59 Temperature Pulse Rate 103 H 99 H 98 H Blood Pressure O2 Sat by Pulse 99 98 100 Oximetry 01/22/20 01/22/20 05 07:04 07:09 07:14 Temperature Pulse Rate 96 H 94 H 109 H Blood Pressure O2 Sat by Pulse 99 99 98 Oximetry 01/22/20 01/22/20 05 07:19 07:24 07:29 Temperature Pulse Rate 100 H 100 H 112 H Blood Pressure O2 Sat by Pulse 98 100 99 Oximetry 01/22/20 01/22/20 05 07:34 07:39 07:44 Temperature Pulse Rate 109 H 103 H 103 H Blood Pressure O2 Sat by Pulse 98 99 99 Oximetry 01/22/20/03/07 05/03/07 07:49 07:54 07:59 Temperature Pulse Rate 108 H 105 H 104 H Blood Pressure O2 Sat by Pulse 97 97 96 Oximetry 01/22/20 01/22/20 01/22/20 08:02 08:04 08:09 Temperature 98.3 F Pulse Rate 98 H 107 H Blood Pressure O2 Sat by Pulse 96 96 Oximetry 01/22/20 01/22/20 05 08:14 08:19 08:24 Temperature Pulse Rate 100 H 106 H 104 H Blood Pressure O2 Sat by Pulse 97 97 99 Oximetry 01/22/20 01/22/20 01/22/20 08:29 08:34 08:35 Temperature Pulse Rate 100 H 98 H 96 H Blood Pressure 97/55 O2 Sat by Pulse 98 98 Oximetry 01/22/20 01/22/20 01/22/20 08:39 08:44 08:49 Temperature Pulse Rate 98 H 102 H 111 H Blood Pressure O2 Sat by Pulse 99 98 98 Oximetry 01/22/20 01/22/20 01/22/20 08:54 08:59 09:04 Temperature Pulse Rate 96 H 95 H 87 Blood Pressure O2 Sat by Pulse 99 99 99 Oximetry 01/22/20 01/22/20 01/22/20 09:05 09:09 09:14 Temperature Pulse Rate 93 H 102 H 104 H Blood Pressure 103/51 O2 Sat by Pulse 98 98 Oximetry 01/22/20 01/22/20 01/22/20 09:19 09:24 09:29 Temperature Pulse Rate 93 H 93 H 99 H Blood Pressure O2 Sat by Pulse 98 99 98 Oximetry 01/22/20 01/22/20 01/22/20 09:34 09:39 09:44 Temperature Pulse Rate 100 H 97 H 98 H Blood Pressure O2 Sat by Pulse 98 99 99 Oximetry 01/22/20 01/22/20 01/22/20 09:49 09:54 09:59 Temperature Pulse Rate 93 H 90 99 H Blood Pressure O2 Sat by Pulse 99 99 98 Oximetry 01/22/20 01/22/20 01/22/20 10:04 10:05 10:09 Temperature Pulse Rate 94 H 100 H 94 H Blood Pressure 116/57 O2 Sat by Pulse 99 100 Oximetry 01/22/20 01/22/20 01/22/20 10:14 10:19 10:24 Temperature Pulse Rate 104 H 105 H 95 H Blood Pressure O2 Sat by Pulse 100 98 99 Oximetry 01/22/20 01/22/20 01/22/20 10:29 10:34 10:39 Temperature Pulse Rate 105 H 101 H 98 H Blood Pressure O2 Sat by Pulse 99 99 99 Oximetry 01/22/20//01/22/20 10:44 10:53 10:58 Temperature Pulse Rate 95 H 94 H 100 H Blood Pressure O2 Sat by Pulse 99 100 99 Oximetry - Exam Breasts: normal Cardiovascular: Regular rate Lungs: Clear to auscultation, Normal air movement Abdomen: Present: normal appearance, soft, normal bowel sounds Uterus: Present: firm, fundal height above umbilicus FHR: category 1 Uterine Contraction Monitor Mode: Internal (BOW not ruptured; IUPC slide/inserted along intact membranes) Cervical Dilatation: 2.5 (VTX; Intact) Cervical Effacement Percentage: 60 station: -3 Uterine Contraction Frequency (min): 2 Uterine Contraction Pattern: Regular Uterine Tone Measurement Phase: Resting Uterine Contraction Intensity: Moderate - Labs Labs: Abnormal Labs 01/21/20 01/22/20 22:42 00:59 MCH 26 L RDW 16.1 H POC Glucose 67 L Laboratory Results - last 24 hr 01/21/20 01/21/20 01/22/20 22:42 22:45 00:59 WBC 7.6 RBC 4.38 Hgb 11.3 Hct 35.6 MCV 81 MCH 26 L MCHC 32 RDW 16.1 H Plt Count 353 POC Glucose 67 L Blood Type O NEGATIVE Antibody Screen Negative 01/22/20 09:21 WBC RBC Hgb Hct MCV MCH MCHC RDW Plt Count POC Glucose 99 Blood Type Antibody Screen
[2020-01-22] MEDS ORDERED: BUTORPHANOL 2 MG/1 ML INJ IV PRN (11:10)
[2020-01-22] MEDS ORDERED: ePHEDrine SULFATE 50 MG/1 ML INJ IV PRN (12:52)
[2020-01-22] MEDS ORDERED: NALOXONE 2 MG/2 ML INJ IV PRN (12:52)
--- NOTE | 2020-01-22 12:52 | Anesthesia Consultation ---
Anesthesia Consult and Med Hx Date of service: 01/22/20 - Airway Anesthetic Teeth Evaluation: Good ROM Head & Neck: Adequate Mental/Hyoid Distance: Adequate Mallampati Class: Class III Intubation Access Assessment: Possibly Difficult - Pre-Operative Health Status ASA Pre-Surgery Classification: ASA3 Proposed Anesthetic Plan: Epidural, Spinal - Pulmonary Hx Asthma: No COPD: No Hx Pneumonia: No - Cardiovascular System Hx Hypertension: Yes - Central Nervous System Hx Seizures: No Hx Psychiatric Problems: No - Endocrine Hx Renal Disease: No Hx End Stage Renal Disease: No Hx Insulin Dependent Diabetes: Yes Hx Hypothyroidism: No Hx Hyperthyroidism: No - Hematic Hx Anemia: No Hx Sickle Cell Disease: No - Other Systems Hx Alcohol Use: No Hx Obesity: Yes (Morbid obesity BMI 50.2)
[2020-01-22] MEDS ORDERED: fentaNYL-BUPIV 2 MCG/ML-0.125% 200 MCG/100 ML BAG EPIDURAL SCH (13:00)
--- NOTE | 2020-01-22 13:24 | Progress Note ---
Labor Epidural - Labor Epidural Start Time: 13:00 Stop Time: 13:15 Performed by:: ZHENG CORDERO Procedure: CSE for labor In sterile conditions on the right side, L3-L4 space G18 needle advanced to epidural space until loss of resistance. G27 needle advanced through spinal membrane. Injected intrathecally .5cc .75% Bupivacaine. Catheter advanced to 15cm in epidural space. Tolerated well
--- NOTE | 2020-01-22 14:32 | Progress Note ---
Assessment and Plan A: IUP @ 36 3/7 Weeks IDDM Maternal Obesity HTN GBS Negative P: Continue Pitocin Induction AROM ISE Placed Insulin Sliding Scale Continue MD Management of IDDM Subjective - Subjective Date of service: 01/22/20 Patient reports: movement normal, other (Resting Well under epidural anesthesia) Objective - Vital Signs Vital Signs: Vital Signs - 12hr 01/22/20 01/22/20 01/22/20 03:39 03:44 03:49 Temperature Pulse Rate 103 H 107 H 96 H Blood Pressure O2 Sat by Pulse 100 100 99 Oximetry 01/22/20 01/22/20 01/22/20 03:54 03:59 04:04 Temperature Pulse Rate 92 H 98 H 106 H Blood Pressure O2 Sat by Pulse 100 99 98 Oximetry 01/22/20 01/22/20 01/22/20 04:09 04:14 04:19 Temperature Pulse Rate 100 H 113 H 103 H Blood Pressure O2 Sat by Pulse 98 99 100 Oximetry 01/22/20 01/22/20 01/22/20 04:24 04:29 04:34 Temperature Pulse Rate 103 H 104 H 103 H Blood Pressure O2 Sat by Pulse 99 100 99 Oximetry 01/22/20 01/22/20 01/22/20 04:39 04:44 04:49 Temperature Pulse Rate 99 H 97 H 110 H Blood Pressure O2 Sat by Pulse 99 99 100 Oximetry 01/22/20 01/22/20 01/22/20 04:54 04:59 05:04 Temperature Pulse Rate 116 H 106 H 88 Blood Pressure O2 Sat by Pulse 98 98 97 Oximetry 01/22/20 01/22/20 01/22/20 05:05 05:09 05:14 Temperature Pulse Rate 104 H 90 100 H Blood Pressure 113/53 O2 Sat by Pulse 99 99 Oximetry 01/22/20 01/22/20 01/22/20 05:19 05:24 05:29 Temperature Pulse Rate 98 H 95 H 101 H Blood Pressure O2 Sat by Pulse 99 98 97 Oximetry 01/22/20 01/22/20 01/22/20 05:34 05:39 05:44 Temperature Pulse Rate 101 H 98 H 105 H Blood Pressure O2 Sat by Pulse 96 100 100 Oximetry 01/22/20 01/22/20 01/22/20 05:49 05:54 05:59 Temperature Pulse Rate 104 H 100 H 92 H Blood Pressure O2 Sat by Pulse 99 99 99 Oximetry 01/22/20 01/22/20 01/22/20 06:04 06:05 06:09 Temperature Pulse Rate 99 H 98 H 99 H Blood Pressure 124/56 O2 Sat by Pulse 96 97 Oximetry 01/22/20 01/22/20 01/22/20 06:14 06:19 06:24 Temperature Pulse Rate 111 H 107 H 102 H Blood Pressure O2 Sat by Pulse 97 98 97 Oximetry 01/22/20 01/22/20 01/22/20 06:29 06:34 06:39 Temperature Pulse Rate 94 H 98 H 99 H Blood Pressure O2 Sat by Pulse 98 97 98 Oximetry 01/22/20 01/22/20 01/22/20 06:44 06:49 06:54 Temperature Pulse Rate 94 H 103 H 99 H Blood Pressure O2 Sat by Pulse 99 99 98 Oximetry 01/22/20 01/22/20 01/22/20 06:59 07:04 07:09 Temperature Pulse Rate 98 H 96 H 94 H Blood Pressure O2 Sat by Pulse 100 99 99 Oximetry 01/22/20 01/22/20 01/22/20 07:14 07:19 07:24 Temperature Pulse Rate 109 H 100 H 100 H Blood Pressure O2 Sat by Pulse 98 98 100 Oximetry 01/22/20 01/22/20 01/22/20 07:29 07:34 07:39 Temperature Pulse Rate 112 H 109 H 103 H Blood Pressure O2 Sat by Pulse 99 98 99 Oximetry 01/22/20 01/22/20 01/22/20 07:44 07:49 07:54 Temperature Pulse Rate 103 H 108 H 105 H Blood Pressure O2 Sat by Pulse 99 97 97 Oximetry 01/22/20 01/22/20 01/22/20 07:59 08:02 08:04 Temperature 98.3 F Pulse Rate 104 H 98 H Blood Pressure O2 Sat by Pulse 96 96 Oximetry 01/22/20 01/22/20 01/22/20 08:09 08:14 08:19 Temperature Pulse Rate 107 H 100 H 106 H Blood Pressure O2 Sat by Pulse 96 97 97 Oximetry 01/22/20 01/22/20 01/22/20 08:24 08:29 08:34 Temperature Pulse Rate 104 H 100 H 98 H Blood Pressure O2 Sat by Pulse 99 98 98 Oximetry 01/22/20 01/22/20 01/22/20 08:35 08:39 08:44 Temperature Pulse Rate 96 H 98 H 102 H Blood Pressure 97/55 O2 Sat by Pulse 99 98 Oximetry 01/22/20 01/22/20 01/22/20 08:49 08:54 08:59 Temperature Pulse Rate 111 H 96 H 95 H Blood Pressure O2 Sat by Pulse 98 99 99 Oximetry 01/22/20 01/22/20 01/22/20 09:04 09:05 09:09 Temperature Pulse Rate 87 93 H 102 H Blood Pressure 103/51 O2 Sat by Pulse 99 98 Oximetry 01/22/20 01/22/20 01/22/20 09:14 09:19 09:24 Temperature Pulse Rate 104 H 93 H 93 H Blood Pressure O2 Sat by Pulse 98 98 99 Oximetry 01/22/20 01/22/20 01/22/20 09:29 09:34 09:39 Temperature Pulse Rate 99 H 100 H 97 H Blood Pressure O2 Sat by Pulse 98 98 99 Oximetry 01/22/20 01/22/20 01/22/20 09:44 09:49 09:54 Temperature Pulse Rate 98 H 93 H 90 Blood Pressure O2 Sat by Pulse 99 99 99 Oximetry 01/22/20 01/22/20 01/22/20 09:59 10:04 10:05 Temperature Pulse Rate 99 H 94 H 100 H Blood Pressure 116/57 O2 Sat by Pulse 98 99 Oximetry 01/22/20 01/22/20 01/22/20 10:09 10:14 10:19 Temperature Pulse Rate 94 H 104 H 105 H Blood Pressure O2 Sat by Pulse 100 100 98 Oximetry 01/22/20 01/22/20 01/22/20 10:24 10:29 10:34 Temperature Pulse Rate 95 H 105 H 101 H Blood Pressure O2 Sat by Pulse 99 99 99 Oximetry 01/22/20 01/22/20 01/22/20 10:39 10:44 10:53 Temperature Pulse Rate 98 H 95 H 94 H Blood Pressure O2 Sat by Pulse 99 99 100 Oximetry 01/22/20 01/22/20 01/22/20 10:58 11:03 11:06 Temperature Pulse Rate 100 H 94 H 93 H Blood Pressure 112/56 O2 Sat by Pulse 99 98 Oximetry 01/22/20 01/22/20 01/22/20 11:08 11:13 11:18 Temperature Pulse Rate 95 H 94 H 95 H Blood Pressure O2 Sat by Pulse 93 95 95 Oximetry 01/22/20 01/22/20 01/22/20 11:19 11:23 11:24 Temperature Pulse Rate 95 H 89 97 H Blood Pressure O2 Sat by Pulse 94 93 94 Oximetry 01/22/20 01/22/20 01/22/20 11:28 11:30 11:33 Temperature Pulse Rate 94 H 100 H 98 H Blood Pressure O2 Sat by Pulse 95 94 95 Oximetry 01/22/20 01/22/20 01/22/20 11:38 11:43 11:48 Temperature Pulse Rate 94 H 96 H 100 H Blood Pressure O2 Sat by Pulse 96 96 97 Oximetry 01/22/20 01/22/20 01/22/20 11:53 11:58 12:03 Temperature Pulse Rate 102 H 100 H 98 H Blood Pressure O2 Sat by Pulse 95 98 98 Oximetry 01/22/20 01/22/20 01/22/20 12:05 12:08 12:13 Temperature Pulse Rate 89 96 H 93 H Blood Pressure 124/65 O2 Sat by Pulse 98 98 Oximetry 01/22/20 01/22/20 01/22/20 12:18 12:23 12:28 Temperature Pulse Rate 95 H 92 H 102 H Blood Pressure O2 Sat by Pulse 99 99 99 Oximetry 01/22/20 01/22/20 01/22/20 12:33 12:38 12:43 Temperature Pulse Rate 91 H 102 H 96 H Blood Pressure O2 Sat by Pulse 100 100 100 Oximetry 01/22/20 01/22/20 01/22/20 12:44 12:48 12:53 Temperature Pulse Rate 96 H 98 H 96 H Blood Pressure 112/56 125/63 120/66 O2 Sat by Pulse 99 100 Oximetry 01/22/20 01/22/20 01/22/20 12:55 12:56 12:57 Temperature Pulse Rate 100 H 108 H Blood Pressure 115/62 117/86 O2 Sat by Pulse 93 Oximetry 01/22/20 01/22/20 01/22/20 12:58 12:59 13:01 Temperature Pulse Rate 100 H 104 H 97 H Blood Pressure 119/60 120/67 O2 Sat by Pulse 100 Oximetry 01/22/20 01/22/20 01/22/20 13:03 13:05 13:07 Temperature Pulse Rate 95 H 78 91 H Blood Pressure 113/69 107/57 100/55 O2 Sat by Pulse 99 Oximetry 01/22/20 01/22/20 01/22/20 13:08 13:09 13:11 Temperature Pulse Rate 90 85 88 Blood Pressure 98/56 102/58 O2 Sat by Pulse 99 Oximetry 01/22/20 01/22/20 01/22/20 13:13 13:15 13:16 Temperature Pulse Rate 81 102 H 83 Blood Pressure 100/56 120/66 O2 Sat by Pulse 100 Oximetry 01/22/20 01/22/20 01/22/20 13:17 13:21 13:26 Temperature Pulse Rate 88 89 87 Blood Pressure 117/62 O2 Sat by Pulse 99 99 Oximetry 01/22/20 01/22/20 01/22/20 13:31 13:32 13:36 Temperature Pulse Rate 86 90 86 Blood Pressure 98/56 O2 Sat by Pulse 99 99 Oximetry 01/22/20 01/22/20 01/22/20 13:41 13:46 13:49 Temperature Pulse Rate 89 92 H 90 Blood Pressure 103/55 O2 Sat by Pulse 99 99 Oximetry 01/22/20 01/22/20 01/22/20 13:51 13:56 14:01 Temperature Pulse Rate 86 87 84 Blood Pressure O2 Sat by Pulse 99 97 100 Oximetry 01/22/20 01/22/20 01/22/20 14:04 14:06 14:11 Temperature Pulse Rate 88 82 94 H Blood Pressure 110/55 O2 Sat by Pulse 100 100 Oximetry 01/22/20 01/22/20 01/22/20 14:16 14:18 14:21 Temperature Pulse Rate 81 84 88 Blood Pressure 119/66 O2 Sat by Pulse 100 100 Oximetry 01/22/20 14:26 Temperature Pulse Rate 88 Blood Pressure O2 Sat by Pulse 100 Oximetry - Exam Breasts: normal Cardiovascular: Regular rate Lungs: Clear to auscultation, Normal air movement Abdomen: Present: normal appearance, soft, normal bowel sounds Uterus: Present: normal, firm, fundal height above umbilicus FHR: category 1 Uterine Contraction Monitor Mode: Internal Cervical Dilatation: 3 (Large amount of clear fluid upon AROM at 1415) Cervical Effacement Percentage: 70 Uterine Contraction Frequency (min): -2 Uterine Contraction Pattern: Regular Uterine Tone Measurement Phase: Resting Uterine Contraction Intensity: Moderate Extremities: normal - Labs Labs: Abnormal Labs 01/21/20 01/22/20 22:42 00:59 MCH 26 L RDW 16.1 H POC Glucose 67 L Laboratory Results - last 24 hr 01/21/20 01/21/20 01/22/20 22:42 22:45 00:59 WBC 7.6 RBC 4.38 Hgb 11.3 Hct 35.6 MCV 81 MCH 26 L MCHC 32 RDW 16.1 H Plt Count 353 POC Glucose 67 L Blood Type O NEGATIVE Antibody Screen Negative 01/22/20 01/22/20 09:21 13:35 WBC RBC Hgb Hct MCV MCH MCHC RDW Plt Count POC Glucose 99 101 Blood Type Antibody Screen
[2020-01-22] MEDS ORDERED: METOCLOPRAMIDE 10 MG/2 ML INJ ONE (18:13)
[2020-01-22] MEDS ORDERED: FAMOTIDINE 20 MG/2 ML INJ IV ONE (18:13)
[2020-01-22] MEDS ORDERED: BICITRA ORAL LIQD 30ML ONE (18:18)
--- NOTE | 2020-01-22 18:18 | Event Note ---
Date: 01/22/20 PT has been 3 cm for much of the day today with any progression despite ROM and pitocin. In addition, pt recently with pit at 10 mU, had multiple late decels. Pit turned off and FHT was WNL but decels recurred once pit was started at 1mU. And cervix is still unchanged. Last BG was 86. As a result of nonreassuring heart tracing and pt being remote from delivery, options d/w pt and she agreed to proceed with a LTCS. Patient fully consented for the surgery. Risks, benefits. and alternatives were all discussed with the patient including risk of bleeding, infection, and potential for injury. Patient understands and accepts these risks. Patient agrees to proceed with surgery.
[2020-01-22] MEDS ORDERED: OXYTOCIN 10 UNIT/1 ML INJ ONE (18:52)
[2020-01-22] MEDS ORDERED: SODIUM CHLORIDE 0.9% 100 ML ONE (18:52)
[2020-01-22] MEDS ORDERED: PHENYLEPHRINE/NS 1,000 MCG/10 ML SYRINGE (OR USE) IV ONE (18:52)
[2020-01-22] MEDS ORDERED: PHENYLEPHRINE 10 MG/1 ML INJ SDV ONE (18:52)
[2020-01-22] MEDS ORDERED: SODIUM BICARB 8.4% 50 MEQ/50 ML VIAL IV ONE (18:52)
[2020-01-22] MEDS ORDERED: KETOROLAC 30 MG/1 ML INJ ONE (18:52)
[2020-01-22] MEDS ORDERED: LIDOCAINE 2%/EPINEPHRINE 1:200,000 VIAL (20 ML) INFILTRATI ONE (18:52)
[2020-01-22] MEDS ORDERED: DEXMEDETOMIDINE 200 MCG/2 ML VIAL IV ONE (18:55)
[2020-01-22] MEDS ORDERED: METHYLERGONOVINE MALEATE 0.2 MG/ML VIAL IM ONE (18:55)
[2020-01-22] MEDS ORDERED: dexAMETHasone 20 MG/5 ML VIAL ONE (18:55)
[2020-01-22] MEDS ORDERED: BUPIVACAINE/PF (0.5%) 5 MG/1 ML 30 ML VIAL INFILTRATI ONE (18:55)
[2020-01-22] MEDS ORDERED: HETASTARCH 6% 500 ML IV ONE (19:54)
--- NOTE | 2020-01-22 20:33 | Procedure Note ---
OB Delivery Note - Delivery Date of Delivery: 01/22/20 Surgeon: ZAIDA PATTON Estimated blood loss: 1000cc - Section Preop diagnosis: arrest of dilation, nonreassuring FHR tracing Postop diagnosis: same section procedure: section, primary low transverse Disposition: PACU Complications: none, other (except for general oozing throughout the case, which was eventually all controlled.) Narrative: Indication: 29-year-old -0-1-1 at 36 weeks and 3 days with insulin-dep endent diabetes is for primary low transverse due to nonreassuring heart tracing remote from delivery. Patient also with poor cervical change. Findings: Normal uterus but enlarged. Could not exteriorize. Therefore tubes and ovaries could not be seen. Clear fluid. Nuchal cord x1. Procedure: Patient taken to the operating room and prepped and draped in the usual fashion. Pfannenstiel skin incision was made and carried down to the underlying fascia. Fascia was incised and the incision was extended bilaterally. Rectus fascia dissected off the rectus muscle both superiorly and inferiorly. Peritoneum identified tented up and entered. Peritoneal incision extended superiorly and inferiorly with good visualization of the bladder. Bladder blade was placed. Uterine incision was made and the incision was extended bilaterally. The baby was delivered from in the typical vertex fashion. Baby bulb suctioned at the incision site and again after delivery. Cord was clamped and cut and handed off to waiting team. The placenta was delivered spontaneously. The uterus could not be exteriorized due to its bulkiness. So the uterine incision was closed in corporo. The uterus was cleared of all clots and debris. Uterine incision closed with 0 Vicryl in a running locked fashion followed by a second imbricating layer of 0 Vicryl. Good hemostasis was noted after a few additional 0 Vicryl stitches. Her urine was clear. Gutters were cleared of all clots and debris and the pelvis was well irrigated. Good hemostasis noted. Interceed placed over the uterine incision and over the lower uterine segment in the midline. There was a small tear of the left rectus muscle which was reapproximated with 2-0 Vicryl in a running fashion. Attention was turned to the rectus fascia which was reapproximated with 0 Vicryl in a running fashion. Subcutaneous tissues was irrigated and reapproximated with 2-0 Vicryl in a running fashion and this was done in 2 layers due to the patient's habitus.. Skin was closed with 4-0 Vicryl in a subcuticular fashion followed by Dermabond. The procedure was concluded at this point and the patient tolerated the procedure well. All instrument and lap counts were correct. - A at 1 minute: 7 at 5 minutes: 9 Infant Gender: Male
[2020-01-22] MEDS ORDERED: WITCH HAZEL/ GLYCERIN PAD TP PRN (20:38)
[2020-01-22] MEDS ORDERED: SIMETHICONE 80 MG CHEW TAB PO PRN (20:38)
[2020-01-22] MEDS ORDERED: ONDANSETRON 4 MG/2 ML INJ IV PRN (20:38)
[2020-01-22] MEDS ORDERED: NALOXONE 0.4 MG/1 ML INJ IV PRN (20:38)
[2020-01-22] MEDS ORDERED: LANOLIN/ZINC/DIMETHICONE (LANSINOH) 7 GM TP PRN (20:38)
[2020-01-22] MEDS ORDERED: MAGNESIUM HYDROXIDE (MOM) ORAL LIQD UDC PO PRN (20:38)
[2020-01-22] MEDS ORDERED: oxyCODONE /ACETAMINOPHEN 5-325MG TAB PO PRN (20:38)
[2020-01-22] MEDS ORDERED: SENNOSIDES 8.6 MG TAB PO PRN (20:38)
[2020-01-22] MEDS ORDERED: OXYTOCIN 20 UNIT/1000ML DRIP 20 UNITS/1,000 ML BAG IV SCH (21:00)
--- NOTE | 2020-01-22 22:57 | Post Anesthesia Evaluation ---
- Post Anesthesia Evaluation Patient Participated: Yes Airway Patent: Yes Stable Respiratory Function: Yes Nausea/Vomiting: No Temp > 96.8F: Yes Pain Manageable: Yes Adequeate Hydration: Yes Anesthesia Complications: No Block Receding Appropriately: Yes
[2020-01-23] MEDS ORDERED: MORPHINE 4 MG/1 ML INJ IV ONE (01:12)
[2020-01-23] MEDS: LACTATED RINGERS 1,000 ML IV SCH ×2 (03:08→08:45)
--- NOTE | 2020-01-23 04:05 | Progress Note ---
Assessment and Plan A: POD #1 IDDM P: Follow Routine PostOP Orders Encourage ambulation after d/C Yap Continue MD Management for IDDM Subjective - Subjective Date of service: 01/23/20 Patient reports: appetite normal, voiding normally (Yap In Place; adquate urine output), pain well controlled [place]: doing well, bottle feeding Objective - Vital Signs Latest vital signs: Vital Signs Temp Pulse Resp BP BP Pulse Ox 01/23/20 03:09 20 01/22/20 21:45 80 16 102/56 100 01/22/20 21:30 98.4 F 86 20 136/73 98 01/22/20 21:15 81 14 110/67 100 01/22/20 21:00 86 12 108/67 99 01/22/20 20:55 97.6 F 81 12 114/66 99 01/22/20 20:50 84 14 104/57 99 01/22/20 20:45 81 12 112/54 99 01/22/20 20:40 86 16 107/51 100 01/22/20 18:24 98.1 F 18 01/22/20 18:16 100 H 100 01/22/20 18:11 116 H 100 01/22/20 18:06 106 H 100 01/22/20 18:01 103 H 100 01/22/20 17:56 91 H 100 01/22/20 17:51 87 100 01/22/20 17:50 84 115/60 01/22/20 17:46 104 H 100 01/22/20 17:41 93 H 100 01/22/20 17:36 84 100 01/22/20 17:31 82 100 01/22/20 17:26 90 100 01/22/20 17:21 89 100 01/22/20 17:19 88 113/60 01/22/20 17:16 96 H 100 01/22/20 17:11 104 H 100 01/22/20 17:06 95 H 100 01/22/20 17:01 89 100 01/22/20 16:56 94 H 100 01/22/20 16:51 90 100 01/22/20 16:46 82 100 01/22/20 16:41 101 H 100 01/22/20 16:36 96 H 100 01/22/20 16:33 96 H 110/60 01/22/20 16:31 93 H 100 05/06/20 16:26 97 H 100 05/06/20 16:21 110 H 100 05/06/20 16:17 92 H 114/59 05/0620 16:16 94 H 100 05/06/20 16:11 92 H 100 05/06/20 16:06 96 H 100 05/06/20 16:03 89 113/61 05/06/20 16:01 95 H 100 05/06/20 15:56 91 H 100 05/06/20 15:51 97 H 100 05/06/20 15:49 86 110/58 05/06/20 15:46 88 100 05/06/20 15:41 99 H 100 05/06/20 15:36 97 H 100 05/06/20 15:32 88 104/59 05/0620 15:31 91 H 100 05/06/20 15:26 105 H 100 05/06/20 15:21 92 H 100 05/06/20 15:19 92 H 109/61 05/0620 15:16 96 H 100 05/0620 15:11 91 H 100 05/06/20 15:06 94 H 100 05/0620 15:02 95 H 108/64 05/06/20 15:01 86 100 05/0620 14:56 93 H 100 05/0620 14:51 91 H 100 05/06/20 14:47 88 107/56 05/0620 14:46 90 100 05/06/20 14:41 85 100 05/06/20 14:36 93 H 100 05/06/20 14:32 83 106/59 05/0620 14:31 89 100 05/06/20 14:26 88 100 05/06/20 14:21 88 100 05/06/20 14:18 84 119/66 05/06/20 14:16 81 100 05/06/20 14:11 94 H 100 05/06/20 14:06 82 100 05/06/20 14:04 88 110/55 05/06/20 14:01 84 100 05/06/20 13:56 87 97 05/06/20 13:51 86 99 05/06/20 13:49 90 103/55 05/06/20 13:46 92 H 99 05/06/20 13:41 89 99 05/06/20 13:36 86 99 05/06/20 13:32 90 98/56 05/06/20 13:31 86 99 05/06/20 13:26 87 99 05/06/20 13:21 89 99 05/06/20 13:17 88 117/62 05/0620 13:16 83 100 05/0620 13:15 102 H 120/66 05/0620 13:13 81 100/56 05/0620 13:11 88 102/58 05/0620 13:09 85 98/56 05/0620 13:08 90 99 05/0620 13:07 91 H 100/55 05/0620 13:05 78 107/57 05/06 13:03 95 H 113/69 99 05/06 13:01 97 H 120/67 05/0620 12:59 104 H 119/60 05/0620 12:58 100 H 100 05/0620 12:57 108 H 117/86 05/0620 12:56 93 05/0620 12:55 100 H 115/62 05/0620 12:53 96 H 120/66 100 05/0620 12:48 98 H 125/63 99 05/06/20 12:44 96 H 112/56 05/0620 12:43 96 H 100 05/0620 12:38 102 H 100 05/0620 12:33 91 H 100 05/0620 12:28 102 H 99 05/06/20 12:23 92 H 99 05/0620 12:18 95 H 99 05/0620 12:13 93 H 98 05/06/20 12:08 96 H 98 05/06/20 12:05 89 124/65 05/0620 12:03 98 H 98 05/06/20 11:58 100 H 98 05/06/20 11:53 102 H 95 05/06/20 11:48 100 H 97 05/0620 11:43 96 H 96 05/06/20 11:38 94 H 96 05/06/20 11:33 98 H 95 05/06/20 11:30 100 H 94 05/06/20 11:28 94 H 95 05/06/20 11:24 97 H 94 05/06/20 11:23 89 93 05/06/20 11:19 95 H 94 05/0620 11:18 95 H 95 0520 11:13 94 H 95 05 11:08 95 H 93 01/22/20 11:06 93 H 112/56 05 11:03 94 H 98 01/22/20 10:58 100 H 99 0520 10:53 94 H 100 01/22/20 10:44 95 H 99 01/22/20 10:39 98 H 99 01/22/20 10:34 101 H 99 01/22/20 10:29 105 H 99 01/22/20 10:24 95 H 99 01/22/20 10:19 105 H 98 01/22/20 10:14 104 H 100 01/22/20 10:09 94 H 100 01/22/20 10:05 100 H 116/57 01/22/20 10:04 94 H 99 01/22/20 09:59 99 H 98 01/22/20 09:54 90 99 01/22/20 09:49 93 H 99 01/22/20 09:44 98 H 99 01/22/20 09:39 97 H 99 06 09:34 100 H 98 01/22/20 09:29 99 H 98 01/22/20 09:24 93 H 99 01/22/20 09:19 93 H 98 06 09:14 104 H 98 01/22/20 09:09 102 H 98 06 09:05 93 H 103/51 01/22/20 09:04 87 99 01/22/20 08:59 95 H 99 0620 08:54 96 H 99 20 08:49 111 H 98 0620 08:44 102 H 98 05/0620 08:39 98 H 99 050620 08:35 96 H 97/55 0520 08:34 98 H 98 05 08:29 100 H 98 0520 08:24 104 H 99 20 08:19 106 H 97 05/0620 08:14 100 H 97 05 08:09 107 H 96 05 08:04 98 H 96 01/22/20 08:02 98.3 F 05/06/20 07:59 104 H 96 01/22/20 07:54 105 H 97 01/22/20 07:49 108 H 97 01/22/20 07:44 103 H 99 01/22/20 07:39 103 H 99 01/22/20 07:34 109 H 98 01/22/20 07:29 112 H 99 01/22/20 07:24 100 H 100 01/22/20 07:19 100 H 98 01/22/20 07:14 109 H 98 01/22/20 07:09 94 H 99 01/22/20 07:04 96 H 99 01/22/20 06:59 98 H 100 01/22/20 06:54 99 H 98 01/22/20 06:49 103 H 99 01/22/20 06:44 94 H 99 01/22/20 06:39 99 H 98 01/22/20 06:34 98 H 97 01/22/20 06:29 94 H 98 01/22/20 06:24 102 H 97 01/22/20 06:19 107 H 98 01/22/20 06:14 111 H 97 01/22/20 06:09 99 H 97 01/22/20 06:05 98 H 124/56 01/22/20 06:04 99 H 96 01/22/20 05:59 92 H 99 01/22/20 05:54 100 H 99 01/22/20 05:49 104 H 99 01/22/20 05:44 105 H 100 01/22/20 05:39 98 H 100 01/22/20 05:34 101 H 96 01/22/20 05:29 101 H 97 01/22/20 05:24 95 H 98 01/22/20 05:19 98 H 99 01/22/20 05:14 100 H 99 01/22/20 05:09 90 99 01/22/20 05:05 104 H 113/53 01/22/20 05:04 88 97 01/22/20 04:59 106 H 98 01/22/20 04:54 116 H 98 01/22/20 04:49 110 H 100 01/22/20 04:44 97 H 99 01/22/20 04:39 99 H 99 01/22/20 04:34 103 H 99 01/22/20 04:29 104 H 100 01/22/20 04:24 103 H 99 01/22/20 04:19 103 H 100 01/22/20 04:14 113 H 99 01/22/20 04:09 100 H 98 01/22/20 04:04 106 H 98 Intake and Output 01/22/20 01/22/20 01/23/20 14:59 22:59 06:59 Intake Total 873.974 6888 Output Total 1700 Balance 789.898 9513 Intake: IV 090.659 2471 Lactated Ringers 1,000 ml 432.411 2526 @ 125 mls/hr IV DIRECT PAULINA Rx#:[id number] PITOCin/NS 30 UNIT/500ML 20.834 24 30 units In 500 ml @ 1 MILLIUNITS/MIN 1 mls/hr IV TITR PAULINA Rx#:[id number] Output: Urine 1700 Indwelling Catheter 800 Uretheral (Yap) 350 Other: Total, Output Amount 800 Estimated Blood Loss 1,000 - Exam Breasts: Present: normal Cardiovascular: Present: Regular rate Lungs: Present: Clear to auscultation, Normal air movement Abdomen: Present: normal appearance, soft, normal bowel sounds Uterus: Present: normal, firm, fundal height above umbilicus Extremities: Present: normal Incision: Present: normal, dry, dressed - Labs Labs: Abnormal lab results 01/23/20 Range/Units 00:43 POC Glucose 117 H (70-105)
[2020-01-23 09:11] LABS: Hematocrit 31.6 % (30.3-42.9); Hemoglobin 10.3 gm/dl (10.1-14.3)
[2020-01-23] MEDS: INSULIN REGULAR, HUMAN 100 UNITS/1 ML SUB-Q SCH (09:39)
[2020-01-23] MEDS ORDERED: IBUPROFEN 800 MG TAB ONE (10:21)
[2020-01-23] MEDS: IBUPROFEN 800 MG TAB PO PRN (10:22)
[2020-01-24] MEDS: IBUPROFEN 800 MG TAB PO PRN ×2 (03:56→16:05)
[2020-01-24] MEDS: INSULIN REGULAR, HUMAN 100 UNITS/1 ML SUB-Q SCH ×3 (08:58→17:21)
--- NOTE | 2020-01-24 15:59 | Progress Note ---
Assessment and Plan - Patient Problems (1) S/P primary low transverse Current Visit: Yes Status: Acute Plan to address problem: POD 2 - stable Continue routine postop orders Ambulation encouraged, as tolerated Abdominal binder ordered Anticipate discharge in 24 hours (2) Single live Current Visit: Yes Status: Acute (3) Insulin dependent diabetes mellitus Current Visit: Yes Status: Acute Plan to address problem: Last BG 78 On sliding scale insulin Continue GDM diet (4) Rh negative state in antepartum period Current Visit: Yes Status: Acute Plan to address problem: Rhogam not needed because baby is Rh negative (5) Morbid obesity with BMI of 50.0-59.9, adult Current Visit: Yes Status: Acute Subjective - Subjective Date of service: 01/24/20 Principal diagnosis: POD #2; s/p Primary LTCS; IDDM Interval history: see [employer] - H&P, Event Notes, OB Progress Notes, OB Delivery Procedure Note and PP/ZIGZAG APPLIQUER Progress Note Patient reports: appetite normal, voiding normally, pain well controlled, flatus, ambulating normally, no bowel movement : doing well Objective - Vital Signs Latest vital signs: Vital Signs Temp Pulse Resp BP BP Pulse Ox 01/24/20 08:05 98.0 F 87 20 102/54 98 01/24/20 03:56 20 01/23/20 23:54 97.6 F 101 H 18 121/72 100 01/23/20 20:31 20 01/23/20 17:15 97.8 F 91 H 18 119/50 97 Intake and Output 01/23/20 01/24/20 01/24/20 23:59 07:59 15:59 Intake Total 120 240 240 Output Total 800 Balance -680 240 240 Intake: Oral 240 240 Intake, Free Water 120 Output: Urine 800 Void 800 Other: Total, Intake Amount 240 240 Total, Output Amount 400 # Voids Void 1 1 - Exam Cardiovascular: Present: Regular rate Lungs: Present: Clear to auscultation Abdomen: Present: normal appearance, soft Vulva: both: normal Uterus: Present: normal, firm Extremities: Present: normal Incision: Present: normal, dry, intact, dressed Comments: small lochia - Labs Labs: Abnormal lab results 01/23/20 01/23/20 01/24/20 Range/Units 17:50 22:54 08:21 POC Glucose 119 H 114 H 124 H (70-105)
[2020-01-24 17:44] VITALS: BP 118/60
[2020-01-25] MEDS: INSULIN REGULAR, HUMAN 100 UNITS/1 ML SUB-Q SCH ×3 (07:30→16:30)
--- NOTE | 2020-01-25 18:21 | Progress Note ---
Assessment and Plan A: /postop day 3 S/P primary LTCS. P: Monitor BPs overnight. Anticipate discharge tomorrow morning. Recheck hemoglobin. Subjective - Subjective Date of service: 01/25/20 Principal diagnosis: POD #2; s/p Primary LTCS; IDDM Interval history: /postop day 3 S/P primary low transverse section. BPs mildly elevated today. Patient reports: appetite normal, voiding normally, pain well controlled, flatus, ambulating normally, no dizzy ambulation, no nauseated [place]: doing well Objective - Vital Signs Latest vital signs: Vital Signs Temp Pulse Resp BP Pulse Ox 01/25/20 09:02 98.6 F 105 H 14 139/66 96 01/24/20 23:42 98.3 F 105 H 20 144/61 100 Intake and Output 01/25/20 01/25/20 01/25/20 07:59 15:59 23:59 Intake Total 1600 Balance 1600 Intake: Oral 1600 Other: Total, Intake Amount 800 Voiding Method Toilet # Voids 1 # Bowel Movements 1 - Exam Cardiovascular: Present: Regular rate, Normal S1, Normal S2 Lungs: Present: Clear to auscultation Abdomen: Present: normal appearance, soft, normal bowel sounds. Absent: distention, tenderness, guarding, rigidity Uterus: Present: normal, firm, fundal height below umbilicus. Absent: bogginess, tenderness Extremities: Present: normal, edema (mild edema feet). Absent: tenderness Incision: Present: normal, dry, intact - Labs Labs: Abnormal lab results 01/25/20 01/25/20 01/25/20 Range/Units 08:19 12:04 17:15 POC Glucose 106 H 107 H 115 H (70-105)
--- NOTE | 2020-01-26 11:24 | Discharge Summary ---
Providers - Providers Date of Admission: 01/21/20 20:48 Attending physician: SALONI CHAVARRIA MD Patient had not been discharged yet but she signed herself out on 01/25/2020. Primary care physician: SALONI CHAVARRIA MD Hospitalization Disposition: [id number] LEFT AGAINST MED ADVICE Plan - Discharge Medications Prescriptions: Ibuprofen [Motrin 800 MG tab] 800 mg PO Q6H PRN #30 tablet PRN Reason: Pain, Mild (1-3) oxyCODONE /ACETAMINOPHEN [Percocet 5/325 mg] 1 tab PO Q4H PRN #30 tablet PRN Reason: Pain, Moderate (4-6) - Provider Discharge Summary Additional instructions: [] Smoking cessation referral if applicable(refer to patient education folder for contact #) [] Refer to [facility] Booklet Call your doctor immediately for: * Fever > 100.5 * Heavy vaginal bleeding ( >1 pad per hour) * Severe persistent headache * Shortness of breath * Reddened, hot, painful area to leg or breast * Drainage or odor from incision. * Keep incision clean and dry at all times and follow doctor's instructions regarding bathing/showering - Follow up plan Follow up: SALONI CHAVARRIA MD [Primary Care Provider] - 14 Days Forms: AMA Form
== END 2020-01-25 23:20 | disposition left against medical advice (07) | DRG 788 ==
LOC: LD 20:48 → OB 01-23 00:10
PROVIDERS: ADMIT Obstetrics & Gynecology; ATTEND Obstetrics & Gynecology
PROC: 10D00Z1 Extraction of Products of Conception, Low, Open Approach (ICD-10-PCS; principal; 2020-01-22)
DX: O40.3XX0 Polyhydramnios, third trimester, not applicable or unspecified (principal); O75.0 Maternal distress during labor and delivery; Z3A.36 36 weeks gestation of pregnancy; E10.65 Type 1 diabetes mellitus with hyperglycemia; E66.01 Morbid (severe) obesity due to excess calories; O99.214 Obesity complicating childbirth; O24.92 Unspecified diabetes mellitus in childbirth; Z37.0 Single live birth; Z71.3 Dietary counseling and surveillance
CPT/HCPCS: 36415; 82962; 85014; 85018; 85027; 85461; 86850; 86900; 86901; G0378; C1765; J0595; J1100; J1815; J1885; J2210; J2270; J2370; J2590; J2765; J3490; J7120